=== PATIENT | female | born 1975 | race Caucasian/White ===

== ENCOUNTER 2017-08-04 09:12 | Inpatient (IN) | payer BC, MEDICAID ==
[2017-08-04 09:58] LABS: ADD MAN DIFF? NO
[2017-08-04 09:59] LABS: BASOPHIL # 0.1 10^3/ul (0.0-0.1); BASOPHILS % 0.5 % (0.0-2.0); EOSINOPHILS # 0.1 10^3/ul (0.0-0.5); EOSINOPHILS % 1.5 % (0.0-7.0); HEMATOCRIT 41.3 % (37.0-47.0); HEMOGLOBIN 13.2 g/dl (12.0-16.0); LYMPHOCYTES # 1.8 10^3/ul (0.8-2.9); LYMPHOCYTES % 18.7 % (15.0-51.0); MEAN CORPUSCULAR HEMOGLOBIN 30.2 pg (29.0-33.0); MEAN CORPUSCULAR VOLUME 94.5 fl (82.0-101.0); MONOCYTE # 0.8 10^3/ul (0.3-0.9); MONOCYTES % 8.6 % (0.0-11.0); NEUTROPHIL # 6.8 10^3/ul (1.6-7.5); NEUTROPHILS % 70.3 % (39.0-77.0); PLATELET COUNT 235 10^3/UL (140-415); RED BLOOD COUNT 4.37 10^6/ul (4.20-5.40); RED CELL DISTRIBUTION WIDTH 14.2 % (11.5-14.5)
[2017-08-04 09:59] LABS: WHITE BLOOD COUNT 9.6 10^3/ul (4.8-10.8)
[2017-08-04 10:16] LABS: ANION GAP 17 (8-16); BLOOD UREA NITROGEN 14 mg/dl (7-20); CALCIUM 9.2 mg/dl (8.4-10.2); CARBON DIOXIDE 27 mmol/L (21-31); CHLORIDE 103 mmol/L (97-110); CREATININE 0.89 mg/dl (0.44-1.00); GLUCOSE 125 mg/dl (70-220); POTASSIUM 4.2 mmol/L (3.5-5.1); SODIUM 143 mmol/L (135-144)
[2017-08-04 10:28] LABS: B-TYPE NATRIURETIC PEPTIDE 8470 PG/ML (0-125); TROPONIN-I 0.015 ng/ml (0.00-0.12)
[2017-08-04] MEDS ORDERED: HYDROCODONE/APAP (5/325) TAB PO (14:30)
[2017-08-04] MEDS ORDERED: ZOLPIDEM 5 MG TAB PO (14:30)
[2017-08-04] MEDS ORDERED: LORAZEPAM 0.5 MG TAB PO (14:30)
[2017-08-04] MEDS ORDERED: morphine 2 MG INJ IV (14:30)
[2017-08-04] MEDS ORDERED: ACETAMINOPHEN 325 MG TAB PO ×2 (14:30→15:00)
[2017-08-04] MEDS ORDERED: NACL 0.9% 3 ML SYG IV (14:30)
[2017-08-04] MEDS ORDERED: BISACODYL (EC) 5 MG TAB PO (14:30)
[2017-08-04] MEDS ORDERED: ONDANSETRON 4 MG INJ IV (15:00)
[2017-08-04] MEDS: FAMOTIDINE 20 MG TAB PO (15:31)
[2017-08-04] MEDS: PANTOPRAZOLE (EC) 40 MG TAB PO (15:31)
[2017-08-04] MEDS: LIDOCAINE/MYLANTA 40 ML BTL PO (15:32)
[2017-08-04 17:25] LABS: CREATINE KINASE 43 IU/L (23-200)
[2017-08-04 17:37] LABS: CK INDEX 1.2; CK-MB 0.51 ng/ml (0.0-2.4); TROPONIN-I 0.016 ng/ml (0.00-0.12)
[2017-08-04 17:37] LABS: DIGOXIN 0.9 ng/ml (1.0-2.0)
[2017-08-04] MEDS ORDERED: FUROSEMIDE 40 MG INJ IV (18:00)
[2017-08-04] MEDS: FUROSEMIDE 40 MG INJ IV (18:02)
[2017-08-04] MEDS: MAGNESIUM SULFATE 2 GM/50 ML 50 ML IVPB (18:03)
[2017-08-04] MEDS: IVABRADINE HCL 5 MG TABLET PO (18:17)
[2017-08-04] MEDS: GUAIFENESIN/DM 5ML CUP PO (23:32)
[2017-08-05 05:08] LABS: ADD MAN DIFF? NO
[2017-08-05 05:12] LABS: WHITE BLOOD COUNT 7.2 10^3/ul (4.8-10.8)
[2017-08-05 05:12] LABS: BASOPHILS % 0.4 % (0.0-2.0); EOSINOPHILS # 0.1 10^3/ul (0.0-0.5); EOSINOPHILS % 1.4 % (0.0-7.0); HEMATOCRIT 36.4 % (37.0-47.0); HEMOGLOBIN 11.7 g/dl (12.0-16.0); LYMPHOCYTES # 1.6 10^3/ul (0.8-2.9); LYMPHOCYTES % 21.7 % (15.0-51.0); MEAN CORPUSCULAR HGB CONC 32.1 g/dl (32.0-37.0); MEAN CORPUSCULAR VOLUME 93.3 fl (82.0-101.0); MEAN PLATELET VOLUME 11.7 fl (7.4-10.4); MONOCYTE # 0.8 10^3/ul (0.3-0.9); MONOCYTES % 10.4 % (0.0-11.0); NEUTROPHIL # 4.8 10^3/ul (1.6-7.5); NEUTROPHILS % 65.8 % (39.0-77.0); PLATELET COUNT 192 10^3/UL (140-415); RED CELL DISTRIBUTION WIDTH 14.3 % (11.5-14.5)
[2017-08-05 05:52] LABS: ALANINE AMINOTRANSFERASE 43 IU/L (13-69); ALBUMIN 3.5 g/dl (3.3-4.9); ALBUMIN/GLOBULIN RATIO 1.29; ALKALINE PHOSPHATASE 65 IU/L (42-121); ANION GAP 15 (8-16); ASPARTATE AMINO TRANSFERASE 24 IU/L (15-46); BILIRUBIN,INDIRECT 1.1 mg/dl (0-1.1); BILIRUBIN,TOTAL 1.1 mg/dl (0.2-1.3); BLOOD UREA NITROGEN 14 mg/dl (7-20); CALCIUM 8.9 mg/dl (8.4-10.2); CARBON DIOXIDE 25 mmol/L (21-31); CHLORIDE 106 mmol/L (97-110); CHOL/HDL RATIO 3.7 RATIO; CHOLESTEROL 101 mg/dl (100-200); CREATININE 0.83 mg/dl (0.44-1.00); GLUCOSE 107 mg/dl (70-220); HDL CHOLESTEROL 27 mg/dl (34-88); LDL CHOLESTEROL,CALCULATED 59 mg/dl; MAGNESIUM 2.2 mg/dl (1.7-2.5); POTASSIUM 4.2 mmol/L (3.5-5.1); SODIUM 142 mmol/L (135-144); TOTAL PROTEIN 6.2 g/dl (6.1-8.1); TRIGLYCERIDES 73 mg/dl (0-149)
[2017-08-05] MEDS: PANTOPRAZOLE (EC) 40 MG TAB PO (05:52)
[2017-08-05] MEDS: FUROSEMIDE 40 MG INJ IV ×2 (05:59→17:36)
[2017-08-05] MEDS: IVABRADINE HCL 5 MG TABLET PO ×2 (07:47→17:36)
[2017-08-05] MEDS: ENOXAPARIN 40 MG/0.4 ML SYG SC (08:36)
[2017-08-05] MEDS: LOSARTAN 25 MG TAB PO (08:59)
[2017-08-05] MEDS: SPIRONOLACTONE 25 MG TAB PO (08:59)
[2017-08-05] MEDS: GUAIFENESIN/DM 5ML CUP PO ×2 (09:14→23:46)
[2017-08-05] MEDS: ALBUTEROL/IPRATROPIUM (NEB) 3 ML AMP HHN ×4 (10:08→19:54)
[2017-08-05] MEDS: DIGOXIN 0.125 MG TAB PO (14:08)
[2017-08-06] MEDS: PANTOPRAZOLE (EC) 40 MG TAB PO (05:25)
[2017-08-06] MEDS: FUROSEMIDE 40 MG INJ IV ×2 (05:26→18:12)
[2017-08-06 07:28] LABS: ADD MAN DIFF? NO
[2017-08-06 07:31] LABS: WHITE BLOOD COUNT 8.1 10^3/ul (4.8-10.8)
[2017-08-06 07:31] LABS: BASOPHIL # 0.1 10^3/ul (0.0-0.1); BASOPHILS % 0.6 % (0.0-2.0); EOSINOPHILS # 0.1 10^3/ul (0.0-0.5); EOSINOPHILS % 1.7 % (0.0-7.0); HEMATOCRIT 35.3 % (37.0-47.0); HEMOGLOBIN 11.4 g/dl (12.0-16.0); LYMPHOCYTES # 1.5 10^3/ul (0.8-2.9); LYMPHOCYTES % 18.3 % (15.0-51.0); MEAN CORPUSCULAR HEMOGLOBIN 30.5 pg (29.0-33.0); MEAN CORPUSCULAR HGB CONC 32.3 g/dl (32.0-37.0); MEAN CORPUSCULAR VOLUME 94.4 fl (82.0-101.0); MEAN PLATELET VOLUME 11.3 fl (7.4-10.4); MONOCYTE # 0.7 10^3/ul (0.3-0.9); MONOCYTES % 8.2 % (0.0-11.0); NEUTROPHIL # 5.7 10^3/ul (1.6-7.5); NEUTROPHILS % 70.7 % (39.0-77.0); PLATELET COUNT 176 10^3/UL (140-415); RED BLOOD COUNT 3.74 10^6/ul (4.20-5.40); RED CELL DISTRIBUTION WIDTH 14.6 % (11.5-14.5)
[2017-08-06 07:53] LABS: ANION GAP 17 (8-16); BLOOD UREA NITROGEN 14 mg/dl (7-20); CALCIUM 9.1 mg/dl (8.4-10.2); CARBON DIOXIDE 26 mmol/L (21-31); CHLORIDE 103 mmol/L (97-110); CREATININE 0.92 mg/dl (0.44-1.00); GLUCOSE 100 mg/dl (70-220); MAGNESIUM 1.9 mg/dl (1.7-2.5); PHOSPHORUS 4.7 mg/dl (2.5-4.9); POTASSIUM 3.7 mmol/L (3.5-5.1); SODIUM 142 mmol/L (135-144)
[2017-08-06] MEDS: IVABRADINE HCL 5 MG TABLET PO ×2 (08:00→18:13)
[2017-08-06] MEDS: GUAIFENESIN/DM 5ML CUP PO (08:49)
[2017-08-06] MEDS: SPIRONOLACTONE 25 MG TAB PO (08:49)
[2017-08-06] MEDS: LOSARTAN 25 MG TAB PO (08:49)
[2017-08-06] MEDS: ENOXAPARIN 40 MG/0.4 ML SYG SC (08:51)
[2017-08-06] MEDS ORDERED: CYCLOBENZAPRINE 10 MG TAB PO (10:30)
[2017-08-06] MEDS: ALBUTEROL/IPRATROPIUM (NEB) 3 ML AMP HHN ×3 (12:56→20:10)
[2017-08-06] MEDS: DIGOXIN 0.125 MG TAB PO (13:00)
[2017-08-06] MEDS: POTASSIUM CHLORIDE (SR) 20 MEQ TAB PO (14:27)
[2017-08-06] MEDS: MAGNESIUM SULFATE 2 GM/50 ML 50 ML IVPB (14:27)
[2017-08-06] MEDS: BARIUM SULF 2% 450 ML BTL (BERRY SMOOTHIE) PO (16:00)
[2017-08-07] MEDS: PANTOPRAZOLE (EC) 40 MG TAB PO (05:15)
[2017-08-07] MEDS: FUROSEMIDE 20 MG TAB PO ×2 (05:16→18:31)
[2017-08-07 08:17] LABS: ADD MAN DIFF? NO
[2017-08-07 08:25] LABS: WHITE BLOOD COUNT 9.9 10^3/ul (4.8-10.8)
[2017-08-07 08:25] LABS: BASOPHILS % 0.4 % (0.0-2.0); EOSINOPHILS # 0.2 10^3/ul (0.0-0.5); HEMATOCRIT 38.3 % (37.0-47.0); HEMOGLOBIN 12.1 g/dl (12.0-16.0); LYMPHOCYTES # 1.8 10^3/ul (0.8-2.9); LYMPHOCYTES % 17.7 % (15.0-51.0); MEAN CORPUSCULAR HEMOGLOBIN 30.3 pg (29.0-33.0); MEAN CORPUSCULAR HGB CONC 31.6 g/dl (32.0-37.0); MEAN CORPUSCULAR VOLUME 95.8 fl (82.0-101.0); MEAN PLATELET VOLUME 11.8 fl (7.4-10.4); MONOCYTE # 0.9 10^3/ul (0.3-0.9); NEUTROPHILS % 70.5 % (39.0-77.0); PLATELET COUNT 197 10^3/UL (140-415); RED CELL DISTRIBUTION WIDTH 14.6 % (11.5-14.5)
[2017-08-07 08:42] LABS: ANION GAP 16 (8-16); BLOOD UREA NITROGEN 15 mg/dl (7-20); CALCIUM 9.3 mg/dl (8.4-10.2); CARBON DIOXIDE 29 mmol/L (21-31); CHLORIDE 102 mmol/L (97-110); CREATININE 0.93 mg/dl (0.44-1.00); GLUCOSE 103 mg/dl (70-220); PHOSPHORUS 4.1 mg/dl (2.5-4.9); SODIUM 142 mmol/L (135-144)
[2017-08-07] MEDS: LOSARTAN 25 MG TAB PO (09:00)
[2017-08-07] MEDS: IVABRADINE HCL 5 MG TABLET PO ×2 (09:03→18:30)
[2017-08-07] MEDS: SPIRONOLACTONE 25 MG TAB PO (09:04)
[2017-08-07] MEDS: ALBUTEROL/IPRATROPIUM (NEB) 3 ML AMP HHN (10:50)
[2017-08-07] MEDS: DIGOXIN 0.125 MG TAB PO (14:17)
[2017-08-07] MEDS: ENOXAPARIN 40 MG/0.4 ML SYG SC (14:20)
[2017-08-07 16:33] LABS: ALANINE AMINOTRANSFERASE 37 IU/L (13-69); ALBUMIN 3.7 g/dl (3.3-4.9); ALKALINE PHOSPHATASE 66 IU/L (42-121); ASPARTATE AMINO TRANSFERASE 26 IU/L (15-46); BILIRUBIN,INDIRECT 0.7 mg/dl (0-1.1); BILIRUBIN,TOTAL 0.7 mg/dl (0.2-1.3); TOTAL PROTEIN 6.7 g/dl (6.1-8.1)
[2017-08-07] MEDS: IOHEXOL 300MG/ML 150 ML BTL (17:37)
[2017-08-07] MEDS: SOD CHLORIDE 0.9% 100 ML (17:37)
[2017-08-07 17:45] LABS: ALANINE AMINOTRANSFERASE 39 IU/L (13-69); ALBUMIN 3.7 g/dl (3.3-4.9); ALKALINE PHOSPHATASE 69 IU/L (42-121); ASPARTATE AMINO TRANSFERASE 30 IU/L (15-46); BILIRUBIN,INDIRECT 0.9 mg/dl (0-1.1); BILIRUBIN,TOTAL 0.9 mg/dl (0.2-1.3); TOTAL PROTEIN 6.9 g/dl (6.1-8.1)
[2017-08-07] MEDS: ONDANSETRON 4 MG INJ IV (20:54)
[2017-08-08] MEDS: FUROSEMIDE 20 MG TAB PO ×2 (05:58→17:39)
[2017-08-08] MEDS: PANTOPRAZOLE (EC) 40 MG TAB PO (06:01)
[2017-08-08] MEDS: GUAIFENESIN/DM 5ML CUP PO (06:03)
[2017-08-08] MEDS: IVABRADINE HCL 5 MG TABLET PO ×2 (08:00→17:40)
[2017-08-08] MEDS: ENOXAPARIN 40 MG/0.4 ML SYG SC (09:00)
[2017-08-08] MEDS: LOSARTAN 25 MG TAB PO (09:00)
[2017-08-08] MEDS: SPIRONOLACTONE 25 MG TAB PO (09:00)
[2017-08-08] MEDS: DIGOXIN 0.125 MG TAB PO (13:00)
[2017-08-08] MEDS ORDERED: METOPROLOL 5 MG INJ (20:08)
[2017-08-08] MEDS ORDERED: MIDAZOLAM 1 MG/ML 2 ML INJ ×2 (20:08)
[2017-08-08] MEDS ORDERED: PROPOFOL 20 ML (20:08)
[2017-08-09 06:45] LABS: ADD MAN DIFF? NO
[2017-08-09] MEDS: FUROSEMIDE 20 MG TAB PO (06:50)
[2017-08-09] MEDS: PANTOPRAZOLE (EC) 40 MG TAB PO (06:50)
[2017-08-09 06:52] LABS: BASOPHIL # 0.1 10^3/ul (0.0-0.1); BASOPHILS % 0.7 % (0.0-2.0); EOSINOPHILS # 0.2 10^3/ul (0.0-0.5); EOSINOPHILS % 2.8 % (0.0-7.0); HEMATOCRIT 35.3 % (37.0-47.0); HEMOGLOBIN 11.4 g/dl (12.0-16.0); LYMPHOCYTES # 1.4 10^3/ul (0.8-2.9); LYMPHOCYTES % 19.2 % (15.0-51.0); MEAN CORPUSCULAR HEMOGLOBIN 30.2 pg (29.0-33.0); MEAN CORPUSCULAR HGB CONC 32.3 g/dl (32.0-37.0); MEAN CORPUSCULAR VOLUME 93.6 fl (82.0-101.0); MEAN PLATELET VOLUME 11.3 fl (7.4-10.4); MONOCYTE # 0.7 10^3/ul (0.3-0.9); MONOCYTES % 9.4 % (0.0-11.0); NEUTROPHIL # 4.8 10^3/ul (1.6-7.5); NEUTROPHILS % 67.6 % (39.0-77.0); PLATELET COUNT 176 10^3/UL (140-415); RED BLOOD COUNT 3.77 10^6/ul (4.20-5.40); RED CELL DISTRIBUTION WIDTH 14.3 % (11.5-14.5)
[2017-08-09 07:21] LABS: ANION GAP 14 (8-16); BLOOD UREA NITROGEN 15 mg/dl (7-20); CALCIUM 8.9 mg/dl (8.4-10.2); CARBON DIOXIDE 26 mmol/L (21-31); CHLORIDE 103 mmol/L (97-110); CREATININE 0.83 mg/dl (0.44-1.00); GLUCOSE 99 mg/dl (70-220); PHOSPHORUS 4.6 mg/dl (2.5-4.9); POTASSIUM 4.2 mmol/L (3.5-5.1); SODIUM 139 mmol/L (135-144)
[2017-08-09] MEDS: ENOXAPARIN 40 MG/0.4 ML SYG SC (08:21)
[2017-08-09] MEDS: LOSARTAN 25 MG TAB PO (08:24)
[2017-08-09] MEDS: IVABRADINE HCL 5 MG TABLET PO (08:25)
[2017-08-09] MEDS: SPIRONOLACTONE 25 MG TAB PO (08:25)
[2017-08-09] MEDS: DIGOXIN 0.125 MG TAB PO (12:15)
[2017-08-09] MEDS ORDERED: PANTOPRAZOLE (EC) 40 MG TAB PO (18:00)
== END 2017-08-09 14:57 | disposition home or self-care (01) | DRG 391 ==
LOC: MS4 08-05 23:59 → E/R 09:12 → MS3 14:33
PROC: 0DB68ZX Excision of Stomach, Via Natural or Artificial Opening Endoscopic, Diagnostic (ICD-10-PCS; principal; 2017-08-08 20:00)
PROC: 0DB98ZX Excision of Duodenum, Via Natural or Artificial Opening Endoscopic, Diagnostic (ICD-10-PCS; 2017-08-08 20:00)
DX: K29.70 Gastritis, unspecified, without bleeding (principal); I50.23 Acute on chronic systolic (congestive) heart failure; I42.9 Cardiomyopathy, unspecified; K80.20 Calculus of gallbladder without cholecystitis without obstruction; Z95.810 Presence of automatic (implantable) cardiac defibrillator
CPT/HCPCS: 36415; 71045; 74177; 76705; 78226; 80048; 80053; 80061; 80076; 80162; 82550; 82553; 83735; 83880; 84100; 84443; 84484; 84703; 85025; 88305; 88312; 93005; 94640; 94664; 99285-25

== ENCOUNTER 2018-01-26 10:02 | Observation (INO) | payer BC ==
[2018-01-26 11:55] LABS: ADD MAN DIFF? NO
[2018-01-26 12:16] LABS: BASOPHIL # 0.1 10^3/ul (0.0-0.1); BASOPHILS % 0.7 % (0.0-2.0); EOSINOPHILS # 0.1 10^3/ul (0.0-0.5); EOSINOPHILS % 1.2 % (0.0-7.0); HEMATOCRIT 36.1 % (37.0-47.0); HEMOGLOBIN 11.6 g/dl (12.0-16.0); LYMPHOCYTES # 1.6 10^3/ul (0.8-2.9); LYMPHOCYTES % 18.6 % (15.0-51.0); MEAN CORPUSCULAR HEMOGLOBIN 30.9 pg (29.0-33.0); MEAN CORPUSCULAR HGB CONC 32.1 g/dl (32.0-37.0); MEAN CORPUSCULAR VOLUME 96.3 fl (82.0-101.0); MEAN PLATELET VOLUME 11.2 fl (7.4-10.4); MONOCYTE # 0.7 10^3/ul (0.3-0.9); MONOCYTES % 8.7 % (0.0-11.0); NEUTROPHIL # 5.9 10^3/ul (1.6-7.5); NEUTROPHILS % 70.4 % (39.0-77.0); PLATELET COUNT 192 10^3/UL (140-415); RED BLOOD COUNT 3.75 10^6/ul (4.20-5.40); RED CELL DISTRIBUTION WIDTH 14.5 % (11.5-14.5)
[2018-01-26 12:16] LABS: WHITE BLOOD COUNT 8.3 10^3/ul (4.8-10.8)
[2018-01-26 12:18] LABS: INR 1.29; PROTIME 16.3 Sec (11.9-14.9); PT RATIO 1.3
[2018-01-26 12:19] LABS: PARTIAL THROMBOPLASTIN TIME 30.3 Sec (25.0-35.0)
[2018-01-26 12:22] LABS: ANION GAP 17 (8-16); BLOOD UREA NITROGEN 21 mg/dl (7-20); CALCIUM 9.5 mg/dl (8.4-10.2); CARBON DIOXIDE 25 mmol/L (21-31); CHLORIDE 104 mmol/L (97-110); CREATININE 1.02 mg/dl (0.44-1.00); GLUCOSE 107 mg/dl (70-220); POTASSIUM 4.5 mmol/L (3.5-5.1); SODIUM 141 mmol/L (135-144)
[2018-01-26 12:34] LABS: TROPONIN-I 0.019 ng/ml (0.000-0.120)
[2018-01-26 12:54] LABS: DIGOXIN 0.9 ng/ml (1.0-2.0)
[2018-01-26 13:00] LABS: B-TYPE NATRIURETIC PEPTIDE 15000 PG/ML (0-125)
[2018-01-26 13:19] LABS: ALANINE AMINOTRANSFERASE 25 IU/L (13-69); ALBUMIN 4.1 g/dl (3.3-4.9); ALKALINE PHOSPHATASE 86 IU/L (42-121); ASPARTATE AMINO TRANSFERASE 27 IU/L (15-46); BILIRUBIN,INDIRECT 1.4 mg/dl (0-1.1); BILIRUBIN,TOTAL 1.4 mg/dl (0.2-1.3); TOTAL PROTEIN 7.1 g/dl (6.1-8.1)
[2018-01-26 13:50] LABS: MAGNESIUM 1.9 mg/dl (1.7-2.5)
[2018-01-26 14:19] LABS: ADD UMIC YES; UR ASCORBIC ACID NEGATIVE (NEGATIVE); UR BACTERIA FEW /HPF (NONE SEEN); UR BILIRUBIN (Dip) NEGATIVE (NEGATIVE); UR BLOOD (Dip) 1+ mg/dL (NEGATIVE); UR CLARITY CLEAR (CLEAR); UR COLOR YELLOW (YELLOW); UR GLUCOSE (Dip) NEGATIVE (NEGATIVE); UR KETONES (Dip) NEGATIVE (NEGATIVE); UR LEUKOCYTE ESTERASE (Dip) TRACE Leu/ul (NEGATIVE); UR NITRITE (Dip) NEGATIVE (NEGATIVE); UR RBC 1 /HPF (0-5); UR SPECIFIC GRAVITY (Dip) 1.009 (1.003-1.030); UR SQUAMOUS EPITHELIAL CELL FEW /HPF (FEW); UR TOTAL PROTEIN (Dip) NEGATIVE (NEGATIVE); UR UROBILINOGEN (Dip) NEGATIVE (NEGATIVE); UR WBC 6 /HPF (0-5)
[2018-01-26] MEDS ORDERED: HYDROCODONE/APAP (5/325) TAB PO (17:00)
[2018-01-26] MEDS ORDERED: NACL 0.9% 3 ML SYG IV (17:00)
[2018-01-26] MEDS ORDERED: ONDANSETRON 4 MG INJ IV (17:00)
[2018-01-26] MEDS: FUROSEMIDE 40 MG INJ IV (18:05)
[2018-01-26] MEDS: IVABRADINE HCL 5 MG TABLET PO (18:05)
[2018-01-26] MEDS: ONDANSETRON 4 MG TAB PO (18:47)
[2018-01-26] MEDS ORDERED: SACUBITRIL/VALSARTAN (49mg-51mg) TABLET PO (21:00)
[2018-01-27 06:17] LABS: HEMOGLOBIN A1C 5.5 % (0-5.9)
[2018-01-27] MEDS: PANTOPRAZOLE SODIUM 20 MG TABEC PO (06:40)
[2018-01-27] MEDS: ONDANSETRON 4 MG TAB PO ×4 (06:40→22:25)
[2018-01-27 06:47] LABS: ALANINE AMINOTRANSFERASE 32 IU/L (13-69); ALBUMIN/GLOBULIN RATIO 1.16; ANION GAP 14 (8-16); ASPARTATE AMINO TRANSFERASE 27 IU/L (15-46); BILIRUBIN,TOTAL 1.3 mg/dl (0.2-1.3); BLOOD UREA NITROGEN 24 mg/dl (7-20); CALCIUM 9.2 mg/dl (8.4-10.2); CARBON DIOXIDE 27 mmol/L (21-31); CHLORIDE 102 mmol/L (97-110); CREATININE 1.15 mg/dl (0.44-1.00); GLUCOSE 97 mg/dl (70-220); MAGNESIUM 2.1 mg/dl (1.7-2.5); POTASSIUM 4.3 mmol/L (3.5-5.1); SODIUM 139 mmol/L (135-144)
[2018-01-27 06:48] LABS: ALBUMIN 3.5 g/dl (3.3-4.9); ALKALINE PHOSPHATASE 71 IU/L (42-121); BILIRUBIN,INDIRECT 1.3 mg/dl (0-1.1); TOTAL PROTEIN 6.5 g/dl (6.1-8.1)
[2018-01-27] MEDS: FUROSEMIDE 40 MG INJ IV (06:53)
[2018-01-27] MEDS: SPIRONOLACTONE 25 MG TAB PO (08:08)
[2018-01-27] MEDS: IVABRADINE HCL 5 MG TABLET PO ×2 (08:08→17:04)
[2018-01-27] MEDS: ENOXAPARIN 40 MG/0.4 ML SYG SC (08:13)
[2018-01-27] MEDS: DIGOXIN 0.125 MG TAB PO (12:15)
[2018-01-27] MEDS: BISACODYL (EC) 5 MG TAB PO (12:55)
[2018-01-27] MEDS: FUROSEMIDE 20 MG INJ IV (17:05)
[2018-01-27] MEDS: ACETAMINOPHEN 325 MG TAB PO (22:28)
[2018-01-28] MEDS: FUROSEMIDE 20 MG INJ IV (05:23)
[2018-01-28] MEDS: PANTOPRAZOLE SODIUM 20 MG TABEC PO (05:23)
[2018-01-28 06:49] LABS: ANION GAP 12 (8-16); BLOOD UREA NITROGEN 23 mg/dl (7-20); CARBON DIOXIDE 29 mmol/L (21-31); CHLORIDE 100 mmol/L (97-110); CREATININE 1.21 mg/dl (0.44-1.00); GLUCOSE 95 mg/dl (70-220); POTASSIUM 4.3 mmol/L (3.5-5.1); SODIUM 137 mmol/L (135-144)
[2018-01-28] MEDS: SPIRONOLACTONE 25 MG TAB PO (08:05)
[2018-01-28] MEDS: IVABRADINE HCL 5 MG TABLET PO (08:05)
[2018-01-28] MEDS: ENOXAPARIN 40 MG/0.4 ML SYG SC (08:07)
[2018-01-28] MEDS: DIGOXIN 0.125 MG TAB PO (12:11)
== END 2018-01-28 17:00 | disposition home or self-care (01) ==
LOC: E/R 10:02 → 6WM 13:58
DX: I50.23 Acute on chronic systolic (congestive) heart failure (principal); I42.9 Cardiomyopathy, unspecified; Z95.810 Presence of automatic (implantable) cardiac defibrillator
CPT/HCPCS: 36415; 71045; 80048; 80053; 80076; 80162; 81001; 81025; 83036; 83735; 83880; 84100; 84484; 85025; 85610; 85730; 93005; 93306; 99217; 99285-25; G0378

== ENCOUNTER 2018-02-04 05:13 | Inpatient (IN) | payer BC ==
[2018-02-04 06:18] LABS: ADD MAN DIFF? NO
[2018-02-04 06:22] LABS: WHITE BLOOD COUNT 8.2 10^3/ul (4.8-10.8)
[2018-02-04 06:22] LABS: BASOPHIL # 0.1 10^3/ul (0.0-0.1); BASOPHILS % 0.6 % (0.0-2.0); EOSINOPHILS # 0.1 10^3/ul (0.0-0.5); EOSINOPHILS % 1.1 % (0.0-7.0); HEMATOCRIT 35.1 % (37.0-47.0); HEMOGLOBIN 11.5 g/dl (12.0-16.0); LYMPHOCYTES # 1.8 10^3/ul (0.8-2.9); LYMPHOCYTES % 22.5 % (15.0-51.0); MEAN CORPUSCULAR HGB CONC 32.8 g/dl (32.0-37.0); MEAN CORPUSCULAR VOLUME 94.6 fl (82.0-101.0); MEAN PLATELET VOLUME 11.4 fl (7.4-10.4); MONOCYTE # 0.6 10^3/ul (0.3-0.9); MONOCYTES % 7.8 % (0.0-11.0); NEUTROPHIL # 5.5 10^3/ul (1.6-7.5); NEUTROPHILS % 67.5 % (39.0-77.0); PLATELET COUNT 204 10^3/UL (140-415); RED BLOOD COUNT 3.71 10^6/ul (4.20-5.40); RED CELL DISTRIBUTION WIDTH 14.6 % (11.5-14.5)
[2018-02-04] MEDS: ASPIRIN 81 MG TAB PO (06:39)
[2018-02-04] MEDS: FUROSEMIDE 40 MG INJ IV (06:39)
[2018-02-04 07:06] LABS: ALANINE AMINOTRANSFERASE 61 IU/L (13-69); ALBUMIN/GLOBULIN RATIO 1.21; ALKALINE PHOSPHATASE 92 IU/L (42-121); ANION GAP 19 (8-16); ASPARTATE AMINO TRANSFERASE 53 IU/L (15-46); BILIRUBIN,INDIRECT 1.8 mg/dl (0-1.1); BILIRUBIN,TOTAL 1.8 mg/dl (0.2-1.3); BLOOD UREA NITROGEN 24 mg/dl (7-20); CALCIUM 9.4 mg/dl (8.4-10.2); CARBON DIOXIDE 23 mmol/L (21-31); CHLORIDE 101 mmol/L (97-110); GLUCOSE 116 mg/dl (70-220); POTASSIUM 4.1 mmol/L (3.5-5.1); SODIUM 139 mmol/L (135-144); TOTAL PROTEIN 7.3 g/dl (6.1-8.1)
[2018-02-04 07:16] LABS: B-TYPE NATRIURETIC PEPTIDE 20600 PG/ML (0-125); TROPONIN-I 0.034 ng/ml (0.000-0.120)
[2018-02-04] MEDS: ALBUTEROL 0.083% (NEB) 2.5 MG/3 ML AMP HHN (07:23)
[2018-02-04] MEDS ORDERED: ONDANSETRON 4 MG INJ IV (09:00)
[2018-02-04] MEDS ORDERED: NACL 0.9% 3 ML SYG IV (09:00)
[2018-02-04] MEDS ORDERED: DOCUSATE SODIUM 100 MG CAP PO (09:00)
[2018-02-04] MEDS ORDERED: ACETAMINOPHEN 325 MG TAB PO (09:00)
[2018-02-04] MEDS ORDERED: morphine 2 MG INJ IV (09:00)
[2018-02-04] MEDS ORDERED: BISACODYL 10 MG SUPP PR (09:00)
[2018-02-04] MEDS ORDERED: HYDROCODONE/APAP (5/325) TAB PO ×2 (09:00)
[2018-02-04] MEDS ORDERED: ACETAMINOPHEN 650 MG SUPP PR (09:00)
[2018-02-04] MEDS ORDERED: MAGNESIUM HYDROXIDE 30ML CUP PO (09:00)
[2018-02-04] MEDS: FERROUS SULFATE (EC) 325 MG TAB PO ×2 (10:50→22:10)
[2018-02-04] MEDS: SPIRONOLACTONE 25 MG TAB PO (10:50)
[2018-02-04 11:21] LABS: CREATINE KINASE 81 IU/L (23-200)
[2018-02-04 11:33] LABS: CK INDEX 0.5; CK-MB 0.41 ng/ml (0.0-2.4); TROPONIN-I 0.017 ng/ml (0.000-0.120)
[2018-02-04] MEDS: DIGOXIN 0.125 MG TAB PO (13:18)
[2018-02-04 15:48] LABS: CREATINE KINASE 72 IU/L (23-200)
[2018-02-04 15:50] LABS: CK INDEX 0.5; CK-MB 0.38 ng/ml (0.0-2.4); TROPONIN-I 0.018 ng/ml (0.000-0.120)
[2018-02-04] MEDS: ALBUTEROL/IPRATROPIUM (NEB) 3 ML AMP HHN ×2 (16:10→19:57)
[2018-02-04] MEDS ORDERED: FUROSEMIDE 40 MG INJ IV (18:00)
[2018-02-04] MEDS: IVABRADINE HCL 5 MG TABLET PO (18:00)
[2018-02-04] MEDS: FUROSEMIDE 20 MG INJ IV (18:22)
[2018-02-04] MEDS: SACUBITRIL/VALSARTAN (24mg-26mg) TABLET PO (22:10)
[2018-02-05] MEDS: PANTOPRAZOLE SODIUM 20 MG TABEC PO (06:01)
[2018-02-05] MEDS: FUROSEMIDE 20 MG INJ IV ×3 (06:06→17:41)
[2018-02-05] MEDS: ALBUTEROL/IPRATROPIUM (NEB) 3 ML AMP HHN ×2 (06:11→21:48)
[2018-02-05 06:20] LABS: ADD MAN DIFF? NO
[2018-02-05 06:27] LABS: WHITE BLOOD COUNT 7.9 10^3/ul (4.8-10.8)
[2018-02-05 06:27] LABS: BASOPHIL # 0.1 10^3/ul (0.0-0.1); BASOPHILS % 0.8 % (0.0-2.0); EOSINOPHILS # 0.2 10^3/ul (0.0-0.5); EOSINOPHILS % 2.7 % (0.0-7.0); HEMOGLOBIN 11.4 g/dl (12.0-16.0); LYMPHOCYTES # 1.6 10^3/ul (0.8-2.9); LYMPHOCYTES % 20.4 % (15.0-51.0); MEAN CORPUSCULAR HEMOGLOBIN 31.1 pg (29.0-33.0); MEAN CORPUSCULAR HGB CONC 31.7 g/dl (32.0-37.0); MEAN CORPUSCULAR VOLUME 98.4 fl (82.0-101.0); MEAN PLATELET VOLUME 11.3 fl (7.4-10.4); MONOCYTE # 0.6 10^3/ul (0.3-0.9); NEUTROPHIL # 5.4 10^3/ul (1.6-7.5); NEUTROPHILS % 68.5 % (39.0-77.0); PLATELET COUNT 193 10^3/UL (140-415); RED BLOOD COUNT 3.66 10^6/ul (4.20-5.40); RED CELL DISTRIBUTION WIDTH 14.7 % (11.5-14.5)
[2018-02-05 06:35] LABS: HEMOGLOBIN A1C 5.8 % (0-5.9)
[2018-02-05 06:46] LABS: ALANINE AMINOTRANSFERASE 59 IU/L (13-69); ALBUMIN 3.6 g/dl (3.3-4.9); ALKALINE PHOSPHATASE 84 IU/L (42-121); ANION GAP 16 (8-16); ASPARTATE AMINO TRANSFERASE 43 IU/L (15-46); BILIRUBIN,INDIRECT 1.2 mg/dl (0-1.1); BILIRUBIN,TOTAL 1.2 mg/dl (0.2-1.3); BLOOD UREA NITROGEN 25 mg/dl (7-20); CALCIUM 9.3 mg/dl (8.4-10.2); CARBON DIOXIDE 29 mmol/L (21-31); CHLORIDE 98 mmol/L (97-110); CHOL/HDL RATIO 3.6 RATIO; CHOLESTEROL 65 mg/dl (100-200); CREATININE 1.02 mg/dl (0.44-1.00); GLUCOSE 106 mg/dl (70-220); HDL CHOLESTEROL 18 mg/dl (34-88); LDL CHOLESTEROL,CALCULATED 35 mg/dl; MAGNESIUM 2.1 mg/dl (1.7-2.5); PHOSPHORUS 4.5 mg/dl (2.5-4.9); POTASSIUM 3.8 mmol/L (3.5-5.1); SODIUM 139 mmol/L (135-144); TOTAL PROTEIN 6.6 g/dl (6.1-8.1); TRIGLYCERIDES 61 mg/dl (0-149)
[2018-02-05 07:00] LABS: FREE THYROXINE INDEX (Calc) 3.69 ug/ml (0.65-3.89); T3 UPTAKE 46.1 % (23.5-40.5)
[2018-02-05] MEDS: IVABRADINE HCL 5 MG TABLET PO ×2 (08:54→17:41)
[2018-02-05] MEDS: SACUBITRIL/VALSARTAN (24mg-26mg) TABLET PO ×2 (08:55→21:07)
[2018-02-05] MEDS: SPIRONOLACTONE 25 MG TAB PO (08:55)
[2018-02-05] MEDS: FERROUS SULFATE (EC) 325 MG TAB PO ×2 (08:55→21:07)
[2018-02-05] MEDS: DIGOXIN 0.125 MG TAB PO (13:35)
[2018-02-05] MEDS: POTASSIUM CHLORIDE (SR) 20 MEQ TAB PO (15:21)
[2018-02-05] MEDS: HYDROCORTISONE 1% 28.35 GM OINT TOP (17:41)
[2018-02-05] MEDS: FISH OIL 1,000 MG CAP PO (21:07)
[2018-02-06] MEDS: FUROSEMIDE 20 MG INJ IV (05:20)
[2018-02-06 06:53] LABS: ADD MAN DIFF? NO
[2018-02-06 06:54] LABS: WHITE BLOOD COUNT 8.2 10^3/ul (4.8-10.8)
[2018-02-06 06:54] LABS: BASOPHIL # 0.1 10^3/ul (0.0-0.1); BASOPHILS % 0.7 % (0.0-2.0); EOSINOPHILS # 0.3 10^3/ul (0.0-0.5); EOSINOPHILS % 3.3 % (0.0-7.0); HEMATOCRIT 40.5 % (37.0-47.0); HEMOGLOBIN 12.6 g/dl (12.0-16.0); LYMPHOCYTES # 2.2 10^3/ul (0.8-2.9); LYMPHOCYTES % 26.2 % (15.0-51.0); MEAN CORPUSCULAR HEMOGLOBIN 31.2 pg (29.0-33.0); MEAN CORPUSCULAR HGB CONC 31.1 g/dl (32.0-37.0); MEAN CORPUSCULAR VOLUME 100.2 fl (82.0-101.0); MEAN PLATELET VOLUME 10.9 fl (7.4-10.4); MONOCYTE # 0.7 10^3/ul (0.3-0.9); MONOCYTES % 8.3 % (0.0-11.0); NEUTROPHILS % 61.1 % (39.0-77.0); PLATELET COUNT 214 10^3/UL (140-415); RED BLOOD COUNT 4.04 10^6/ul (4.20-5.40); RED CELL DISTRIBUTION WIDTH 14.8 % (11.5-14.5)
[2018-02-06] MEDS: PANTOPRAZOLE SODIUM 20 MG TABEC PO (07:14)
[2018-02-06 07:49] LABS: ANION GAP 23 (8-16); BLOOD UREA NITROGEN 20 mg/dl (7-20); CALCIUM 9.4 mg/dl (8.4-10.2); CARBON DIOXIDE 26 mmol/L (21-31); CHLORIDE 98 mmol/L (97-110); CREATININE 0.94 mg/dl (0.44-1.00); GLUCOSE 93 mg/dl (70-220); POTASSIUM 4.6 mmol/L (3.5-5.1); SODIUM 142 mmol/L (135-144)
[2018-02-06] MEDS: SACUBITRIL/VALSARTAN (24mg-26mg) TABLET PO ×2 (08:07→20:58)
[2018-02-06] MEDS: IVABRADINE HCL 5 MG TABLET PO ×2 (08:07→17:36)
[2018-02-06] MEDS: FISH OIL 1,000 MG CAP PO ×2 (08:08→20:58)
[2018-02-06] MEDS: FERROUS SULFATE (EC) 325 MG TAB PO ×2 (08:08→20:58)
[2018-02-06] MEDS: HYDROCORTISONE 1% 28.35 GM OINT TOP ×2 (08:09→20:59)
[2018-02-06] MEDS: SPIRONOLACTONE 25 MG TAB PO (08:17)
[2018-02-06] MEDS: DIGOXIN 0.125 MG TAB PO (12:31)
[2018-02-06] MEDS: BUMETANIDE 3 MG in DEXTROSE 5% 18 ML IV (15:31)
[2018-02-06] MEDS: ALBUTEROL/IPRATROPIUM (NEB) 3 ML AMP HHN (18:33)
[2018-02-07] MEDS: ALBUTEROL/IPRATROPIUM (NEB) 3 ML AMP HHN ×4 (00:11→19:54)
[2018-02-07] MEDS: PANTOPRAZOLE SODIUM 20 MG TABEC PO (05:40)
[2018-02-07] MEDS: FUROSEMIDE 40 MG INJ IV ×2 (05:41→18:07)
[2018-02-07 06:14] LABS: ADD MAN DIFF? NO
[2018-02-07 06:38] LABS: WHITE BLOOD COUNT 7.2 10^3/ul (4.8-10.8)
[2018-02-07 06:38] LABS: BASOPHILS % 0.6 % (0.0-2.0); EOSINOPHILS # 0.3 10^3/ul (0.0-0.5); EOSINOPHILS % 3.6 % (0.0-7.0); HEMATOCRIT 34.8 % (37.0-47.0); HEMOGLOBIN 11.1 g/dl (12.0-16.0); LYMPHOCYTES # 1.4 10^3/ul (0.8-2.9); LYMPHOCYTES % 19.1 % (15.0-51.0); MEAN CORPUSCULAR HEMOGLOBIN 31.1 pg (29.0-33.0); MEAN CORPUSCULAR HGB CONC 31.9 g/dl (32.0-37.0); MEAN CORPUSCULAR VOLUME 97.5 fl (82.0-101.0); MEAN PLATELET VOLUME 11.1 fl (7.4-10.4); MONOCYTE # 0.6 10^3/ul (0.3-0.9); MONOCYTES % 8.1 % (0.0-11.0); NEUTROPHIL # 4.9 10^3/ul (1.6-7.5); NEUTROPHILS % 68.2 % (39.0-77.0); PLATELET COUNT 175 10^3/UL (140-415); RED BLOOD COUNT 3.57 10^6/ul (4.20-5.40)
[2018-02-07 06:54] LABS: ANION GAP 17 (8-16); BLOOD UREA NITROGEN 20 mg/dl (7-20); CALCIUM 8.8 mg/dl (8.4-10.2); CARBON DIOXIDE 26 mmol/L (21-31); CHLORIDE 103 mmol/L (97-110); CREATININE 0.91 mg/dl (0.44-1.00); GLUCOSE 106 mg/dl (70-220); POTASSIUM 3.7 mmol/L (3.5-5.1); SODIUM 142 mmol/L (135-144)
[2018-02-07] MEDS: FISH OIL 1,000 MG CAP PO ×2 (09:06→20:22)
[2018-02-07] MEDS: SACUBITRIL/VALSARTAN (24mg-26mg) TABLET PO ×2 (09:06→20:22)
[2018-02-07] MEDS: FERROUS SULFATE (EC) 325 MG TAB PO ×2 (09:06→20:22)
[2018-02-07] MEDS: IVABRADINE HCL 5 MG TABLET PO ×2 (09:06→17:44)
[2018-02-07] MEDS: SPIRONOLACTONE 25 MG TAB PO (09:06)
[2018-02-07] MEDS: HYDROCORTISONE 1% 28.35 GM OINT TOP ×2 (09:07→20:23)
[2018-02-07] MEDS: DIGOXIN 0.125 MG TAB PO (13:59)
[2018-02-08] MEDS: FUROSEMIDE 40 MG INJ IV (06:00)
[2018-02-08 06:17] LABS: ADD MAN DIFF? NO
[2018-02-08] MEDS: PANTOPRAZOLE SODIUM 20 MG TABEC PO (06:22)
[2018-02-08 06:31] LABS: BASOPHIL # 0.1 10^3/ul (0.0-0.1); BASOPHILS % 0.8 % (0.0-2.0); EOSINOPHILS # 0.2 10^3/ul (0.0-0.5); EOSINOPHILS % 3.1 % (0.0-7.0); HEMOGLOBIN 11.1 g/dl (12.0-16.0); LYMPHOCYTES # 1.3 10^3/ul (0.8-2.9); LYMPHOCYTES % 18.2 % (15.0-51.0); MEAN CORPUSCULAR HEMOGLOBIN 30.4 pg (29.0-33.0); MEAN CORPUSCULAR HGB CONC 30.8 g/dl (32.0-37.0); MEAN CORPUSCULAR VOLUME 98.6 fl (82.0-101.0); MONOCYTE # 0.5 10^3/ul (0.3-0.9); MONOCYTES % 7.2 % (0.0-11.0); NEUTROPHILS % 70.3 % (39.0-77.0); PLATELET COUNT 195 10^3/UL (140-415); RED BLOOD COUNT 3.65 10^6/ul (4.20-5.40); RED CELL DISTRIBUTION WIDTH 15.6 % (11.5-14.5)
[2018-02-08 06:31] LABS: WHITE BLOOD COUNT 7.2 10^3/ul (4.8-10.8)
[2018-02-08 07:19] LABS: B-TYPE NATRIURETIC PEPTIDE 8370 PG/ML (0-125)
[2018-02-08 07:19] LABS: ANION GAP 16 (8-16); BLOOD UREA NITROGEN 21 mg/dl (7-20); CALCIUM 9.3 mg/dl (8.4-10.2); CARBON DIOXIDE 31 mmol/L (21-31); CHLORIDE 100 mmol/L (97-110); CREATININE 1.03 mg/dl (0.44-1.00); GLUCOSE 69 mg/dl (70-220); SODIUM 143 mmol/L (135-144)
[2018-02-08] MEDS: FISH OIL 1,000 MG CAP PO ×2 (08:10→21:28)
[2018-02-08] MEDS: IVABRADINE HCL 5 MG TABLET PO ×2 (08:10→18:09)
[2018-02-08] MEDS: SACUBITRIL/VALSARTAN (24mg-26mg) TABLET PO ×2 (08:11→21:28)
[2018-02-08] MEDS: FERROUS SULFATE (EC) 325 MG TAB PO ×2 (08:11→21:27)
[2018-02-08] MEDS: SPIRONOLACTONE 25 MG TAB PO (08:11)
[2018-02-08] MEDS: HYDROCORTISONE 1% 28.35 GM OINT TOP ×2 (08:13→21:29)
[2018-02-08] MEDS: ALBUTEROL/IPRATROPIUM (NEB) 3 ML AMP HHN ×3 (08:25→19:27)
[2018-02-08] MEDS: DIGOXIN 0.125 MG TAB PO (13:02)
[2018-02-08] MEDS: FUROSEMIDE 20 MG TAB PO (18:10)
== END 2018-02-08 21:49 | disposition home or self-care (01) | DRG 291 ==
LOC: E/R 05:13 → 6WM 08:14
DX: I13.0 Hypertensive heart and chronic kidney disease with heart failure and stage 1 through stage 4 chronic kidney disease, or unspecified chronic kidney disease (principal); I50.23 Acute on chronic systolic (congestive) heart failure; N18.9 Chronic kidney disease, unspecified; I08.1 Rheumatic disorders of both mitral and tricuspid valves; F41.9 Anxiety disorder, unspecified; D64.9 Anemia, unspecified; I42.9 Cardiomyopathy, unspecified; K21.9 Gastro-esophageal reflux disease without esophagitis; Z95.810 Presence of automatic (implantable) cardiac defibrillator
CPT/HCPCS: 36415; 71045; 80048; 80053; 80061; 82550; 82553; 83036; 83735; 83880; 84100; 84436; 84443; 84479; 84484; 85025; 87081; 93005; 93970; 94640; 94664; 96374; 99291-25

== ENCOUNTER 2018-03-02 09:49 | Inpatient (IN) | payer BC ==
[2018-03-02 10:49] LABS: ADD MAN DIFF? NO
[2018-03-02] MEDS: ONDANSETRON 4 MG INJ IV (10:49)
[2018-03-02] MEDS: FAMOTIDINE 20 MG TAB PO (10:49)
[2018-03-02] MEDS: LIDOCAINE/MYLANTA 40 ML BTL PO (10:50)
[2018-03-02] MEDS: BELLADONNA/PHENOBARBITAL TAB PO (10:50)
[2018-03-02] MEDS: SOD CHLORIDE 0.9% 500 ML IV (10:51)
[2018-03-02 10:54] LABS: BASOPHIL # 0.1 10^3/ul (0.0-0.1); EOSINOPHILS # 0.2 10^3/ul (0.0-0.5); EOSINOPHILS % 1.7 % (0.0-7.0); HEMATOCRIT 39.7 % (37.0-47.0); HEMOGLOBIN 12.6 g/dl (12.0-16.0); LYMPHOCYTES # 2.6 10^3/ul (0.8-2.9); LYMPHOCYTES % 26.1 % (15.0-51.0); MEAN CORPUSCULAR HEMOGLOBIN 30.9 pg (29.0-33.0); MEAN CORPUSCULAR HGB CONC 31.7 g/dl (32.0-37.0); MEAN CORPUSCULAR VOLUME 97.3 fl (82.0-101.0); MEAN PLATELET VOLUME 11.6 fl (7.4-10.4); MONOCYTES % 9.7 % (0.0-11.0); NEUTROPHILS % 61.2 % (39.0-77.0); PLATELET COUNT 216 10^3/UL (140-415); RED BLOOD COUNT 4.08 10^6/ul (4.20-5.40); RED CELL DISTRIBUTION WIDTH 15.5 % (11.5-14.5)
[2018-03-02 10:54] LABS: WHITE BLOOD COUNT 9.8 10^3/ul (4.8-10.8)
[2018-03-02] MEDS: KETOROLAC 15 MG INJ IV (10:56)
[2018-03-02 11:05] LABS: ADD UMIC YES; UR ASCORBIC ACID NEGATIVE (NEGATIVE); UR BACTERIA FEW /HPF (NONE SEEN); UR BILIRUBIN (Dip) 1+ mg/dL (NEGATIVE); UR BLOOD (Dip) 2+ mg/dL (NEGATIVE); UR CLARITY CLOUDY (CLEAR); UR COLOR AMBER (YELLOW); UR GLUCOSE (Dip) NEGATIVE (NEGATIVE); UR KETONES (Dip) NEGATIVE (NEGATIVE); UR LEUKOCYTE ESTERASE (Dip) 1+ Leu/ul (NEGATIVE); UR MUCUS MANY /HPF (NONE SEEN); UR NITRITE (Dip) NEGATIVE (NEGATIVE); UR RBC 6 /HPF (0-5); UR SPECIFIC GRAVITY (Dip) 1.025 (1.003-1.030); UR SQUAMOUS EPITHELIAL CELL MODERATE /HPF (FEW); UR TOTAL PROTEIN (Dip) 2+ mg/dl (NEGATIVE); UR UROBILINOGEN (Dip) 2+ mg/dL (NEGATIVE); UR WBC 24 /HPF (0-5)
[2018-03-02 11:17] LABS: INR 1.29; PROTIME 16.3 Sec (11.9-14.9); PT RATIO 1.3
[2018-03-02 11:18] LABS: PARTIAL THROMBOPLASTIN TIME 31.9 Sec (25.0-35.0)
[2018-03-02 11:22] LABS: ALANINE AMINOTRANSFERASE 38 IU/L (13-69); ALBUMIN/GLOBULIN RATIO 1.05; ALKALINE PHOSPHATASE 102 IU/L (42-121); ANION GAP 20 (8-16); ASPARTATE AMINO TRANSFERASE 35 IU/L (15-46); BILIRUBIN,INDIRECT 2.1 mg/dl (0-1.1); BILIRUBIN,TOTAL 2.1 mg/dl (0.2-1.3); BLOOD UREA NITROGEN 21 mg/dl (7-20); CALCIUM 9.9 mg/dl (8.4-10.2); CARBON DIOXIDE 25 mmol/L (21-31); CHLORIDE 101 mmol/L (97-110); CREATININE 1.26 mg/dl (0.44-1.00); GLUCOSE 108 mg/dl (70-220); LIPASE 73 U/L (23-300); POTASSIUM 4.1 mmol/L (3.5-5.1); SODIUM 142 mmol/L (135-144); TOTAL PROTEIN 7.8 g/dl (6.1-8.1)
[2018-03-02 11:25] LABS: B-TYPE NATRIURETIC PEPTIDE 14100 PG/ML (0-125); TROPONIN-I 0.019 ng/ml (0.000-0.120)
[2018-03-02] MEDS: FUROSEMIDE 40 MG INJ IV ×2 (12:38→18:32)
[2018-03-02] MEDS: CEFTRIAXONE 1 GM/50 ML (PMX) 50 ML IVPB (12:38)
[2018-03-02] MEDS ORDERED: hydrALAzine 20 MG INJ IV (13:00)
[2018-03-02] MEDS ORDERED: NITROGLYCERIN (SL) 0.4 MG TAB SL (13:00)
[2018-03-02] MEDS ORDERED: NA PHOSPHATE/BIPHOS 133 ML ENEMA PR (13:00)
[2018-03-02] MEDS ORDERED: NACL 0.9% 3 ML SYG IV (13:00)
[2018-03-02] MEDS ORDERED: ALBUTEROL/IPRATROPIUM (NEB) 3 ML AMP HHN (13:00)
[2018-03-02] MEDS ORDERED: DOCUSATE SODIUM 100 MG CAP PO (13:00)
[2018-03-02] MEDS ORDERED: LORAZEPAM 2 MG INJ IV (13:00)
[2018-03-02] MEDS ORDERED: morphine 2 MG INJ IV (13:00)
[2018-03-02] MEDS ORDERED: MAGNESIUM HYDROXIDE 30ML CUP PO (13:00)
[2018-03-02] MEDS ORDERED: HYDROCODONE/APAP (5/325) TAB PO (13:00)
[2018-03-02 13:40] LABS: CREATINE KINASE 39 IU/L (23-200)
[2018-03-02 13:53] LABS: CK INDEX 0.7; CK-MB 0.29 ng/ml (0.0-2.4); TROPONIN-I 0.023 ng/ml (0.000-0.120)
[2018-03-02 14:08] LABS: FREE T4 (FREE THYROXINE) 1.77 ng/dl (0.64-1.79)
[2018-03-02] MEDS ORDERED: CEFTRIAXONE 1 GM/50 ML (PMX) 50 ML IVPB (17:30)
[2018-03-02 19:14] LABS: CREATINE KINASE 40 IU/L (23-200)
[2018-03-02 19:27] LABS: CK INDEX 0.9; CK-MB 0.35 ng/ml (0.0-2.4)
[2018-03-02] MEDS: IVABRADINE HCL 5 MG TABLET PO (20:57)
[2018-03-02] MEDS: SACUBITRIL/VALSARTAN (49mg-51mg) TABLET PO (20:57)
[2018-03-02] MEDS: FERROUS SULFATE (EC) 325 MG TAB PO (20:57)
[2018-03-02] MEDS: HEPARIN 5,000 UNIT/0.5 ML VIAL SC (20:58)
[2018-03-02] MEDS: RANITIDINE 150 MG TAB PO (20:58)
[2018-03-03 06:31] LABS: ADD MAN DIFF? NO
[2018-03-03 06:36] LABS: BASOPHIL # 0.1 10^3/ul (0.0-0.1); BASOPHILS % 0.9 % (0.0-2.0); EOSINOPHILS # 0.1 10^3/ul (0.0-0.5); EOSINOPHILS % 1.8 % (0.0-7.0); HEMATOCRIT 40.6 % (37.0-47.0); HEMOGLOBIN 12.9 g/dl (12.0-16.0); LYMPHOCYTES # 2.1 10^3/ul (0.8-2.9); LYMPHOCYTES % 26.8 % (15.0-51.0); MEAN CORPUSCULAR HEMOGLOBIN 31.1 pg (29.0-33.0); MEAN CORPUSCULAR HGB CONC 31.8 g/dl (32.0-37.0); MEAN CORPUSCULAR VOLUME 97.8 fl (82.0-101.0); MEAN PLATELET VOLUME 11.3 fl (7.4-10.4); MONOCYTE # 0.7 10^3/ul (0.3-0.9); NEUTROPHIL # 4.7 10^3/ul (1.6-7.5); NEUTROPHILS % 61.1 % (39.0-77.0); PLATELET COUNT 171 10^3/UL (140-415); RED BLOOD COUNT 4.15 10^6/ul (4.20-5.40); RED CELL DISTRIBUTION WIDTH 15.3 % (11.5-14.5)
[2018-03-03 06:36] LABS: WHITE BLOOD COUNT 7.7 10^3/ul (4.8-10.8)
[2018-03-03 06:55] LABS: HEMOGLOBIN A1C 5.7 % (0-5.9)
[2018-03-03 07:22] LABS: ANION GAP 17 (8-16); BLOOD UREA NITROGEN 24 mg/dl (7-20); CALCIUM 10.1 mg/dl (8.4-10.2); CARBON DIOXIDE 26 mmol/L (21-31); CHLORIDE 103 mmol/L (97-110); CREATININE 1.38 mg/dl (0.44-1.00); GLUCOSE 90 mg/dl (70-220); MAGNESIUM 1.8 mg/dl (1.7-2.5); PHOSPHORUS 4.9 mg/dl (2.5-4.9); POTASSIUM 4.8 mmol/L (3.5-5.1); SODIUM 141 mmol/L (135-144)
[2018-03-03 07:23] LABS: CHOL/HDL RATIO 3.7 RATIO; HDL CHOLESTEROL 29 mg/dl (34-88); LDL CHOLESTEROL,CALCULATED 65 mg/dl; TRIGLYCERIDES 77 mg/dl (0-149)
[2018-03-03 07:23] LABS: CHOLESTEROL 109 mg/dl (100-200)
[2018-03-03] MEDS: HEPARIN 5,000 UNIT/0.5 ML VIAL SC ×2 (09:00→20:53)
[2018-03-03] MEDS: IVABRADINE HCL 5 MG TABLET PO ×2 (09:00→20:52)
[2018-03-03] MEDS: SACUBITRIL/VALSARTAN (49mg-51mg) TABLET PO ×2 (09:00→20:52)
[2018-03-03] MEDS: FERROUS SULFATE (EC) 325 MG TAB PO ×2 (09:00→20:52)
[2018-03-03] MEDS: RANITIDINE 150 MG TAB PO ×2 (09:00→20:53)
[2018-03-03] MEDS: SPIRONOLACTONE 25 MG TAB PO (09:00)
[2018-03-03] MEDS: CEFTRIAXONE 1 GM/50 ML (PMX) 50 ML IVPB (12:30)
[2018-03-03] MEDS: DIGOXIN 0.125 MG TAB PO (13:00)
[2018-03-04] MEDS: SOD CHLORIDE 0.9% 250 ML IV (01:45)
[2018-03-04] MEDS: MIDODRINE 5 MG TAB PO (01:45)
[2018-03-04] MEDS: ONDANSETRON 4 MG INJ IV (01:46)
[2018-03-04 08:11] LABS: ADD MAN DIFF? NO
[2018-03-04 08:24] LABS: WHITE BLOOD COUNT 8.1 10^3/ul (4.8-10.8)
[2018-03-04 08:25] LABS: BASOPHIL # 0.1 10^3/ul (0.0-0.1); BASOPHILS % 0.9 % (0.0-2.0); EOSINOPHILS # 0.1 10^3/ul (0.0-0.5); EOSINOPHILS % 1.5 % (0.0-7.0); HEMATOCRIT 40.2 % (37.0-47.0); HEMOGLOBIN 12.7 g/dl (12.0-16.0); LYMPHOCYTES # 1.8 10^3/ul (0.8-2.9); LYMPHOCYTES % 22.5 % (15.0-51.0); MEAN CORPUSCULAR HEMOGLOBIN 30.9 pg (29.0-33.0); MEAN CORPUSCULAR HGB CONC 31.6 g/dl (32.0-37.0); MEAN CORPUSCULAR VOLUME 97.8 fl (82.0-101.0); MEAN PLATELET VOLUME 11.4 fl (7.4-10.4); MONOCYTE # 0.8 10^3/ul (0.3-0.9); MONOCYTES % 9.3 % (0.0-11.0); NEUTROPHIL # 5.3 10^3/ul (1.6-7.5); NEUTROPHILS % 65.4 % (39.0-77.0); PLATELET COUNT 195 10^3/UL (140-415); RED BLOOD COUNT 4.11 10^6/ul (4.20-5.40); RED CELL DISTRIBUTION WIDTH 15.5 % (11.5-14.5)
[2018-03-04 08:49] LABS: ANION GAP 18 (8-16); BLOOD UREA NITROGEN 27 mg/dl (7-20); CALCIUM 10.1 mg/dl (8.4-10.2); CARBON DIOXIDE 26 mmol/L (21-31); CHLORIDE 102 mmol/L (97-110); CREATININE 1.13 mg/dl (0.44-1.00); GLUCOSE 65 mg/dl (70-220); POTASSIUM 4.6 mmol/L (3.5-5.1); SODIUM 141 mmol/L (135-144)
[2018-03-04] MEDS: HEPARIN 5,000 UNIT/0.5 ML VIAL SC ×2 (09:00→20:56)
[2018-03-04] MEDS: RANITIDINE 150 MG TAB PO ×2 (09:00→20:25)
[2018-03-04] MEDS: SACUBITRIL/VALSARTAN (49mg-51mg) TABLET PO ×2 (09:00→20:25)
[2018-03-04] MEDS: SPIRONOLACTONE 25 MG TAB PO (09:00)
[2018-03-04] MEDS: IVABRADINE HCL 5 MG TABLET PO ×2 (09:00→20:25)
[2018-03-04] MEDS: FERROUS SULFATE (EC) 325 MG TAB PO ×2 (09:00→20:25)
[2018-03-04] MEDS ORDERED: ONDANSETRON 4 MG TAB PO (12:00)
[2018-03-04] MEDS: CEFTRIAXONE 1 GM/50 ML (PMX) 50 ML IVPB (12:23)
[2018-03-04] MEDS: DIGOXIN 0.125 MG TAB PO (12:23)
[2018-03-05] MEDS: ACETAMINOPHEN 325 MG TAB PO (05:24)
[2018-03-05 06:11] LABS: ADD MAN DIFF? NO
[2018-03-05 06:13] LABS: BASOPHIL # 0.1 10^3/ul (0.0-0.1); EOSINOPHILS # 0.2 10^3/ul (0.0-0.5); EOSINOPHILS % 2.1 % (0.0-7.0); HEMATOCRIT 36.8 % (37.0-47.0); HEMOGLOBIN 11.7 g/dl (12.0-16.0); LYMPHOCYTES # 2.2 10^3/ul (0.8-2.9); LYMPHOCYTES % 27.7 % (15.0-51.0); MEAN CORPUSCULAR HEMOGLOBIN 31.1 pg (29.0-33.0); MEAN CORPUSCULAR HGB CONC 31.8 g/dl (32.0-37.0); MEAN CORPUSCULAR VOLUME 97.9 fl (82.0-101.0); MEAN PLATELET VOLUME 11.1 fl (7.4-10.4); MONOCYTES % 12.6 % (0.0-11.0); NEUTROPHIL # 4.4 10^3/ul (1.6-7.5); NEUTROPHILS % 56.1 % (39.0-77.0); PLATELET COUNT 181 10^3/UL (140-415); RED BLOOD COUNT 3.76 10^6/ul (4.20-5.40); RED CELL DISTRIBUTION WIDTH 15.7 % (11.5-14.5)
[2018-03-05 06:13] LABS: WHITE BLOOD COUNT 7.8 10^3/ul (4.8-10.8)
[2018-03-05 07:04] LABS: ANION GAP 15 (8-16); CARBON DIOXIDE 26 mmol/L (21-31); CHLORIDE 101 mmol/L (97-110); CREATININE 1.18 mg/dl (0.44-1.00); GLUCOSE 115 mg/dl (70-220); POTASSIUM 4.2 mmol/L (3.5-5.1); SODIUM 138 mmol/L (135-144)
[2018-03-05 07:48] LABS: BLOOD UREA NITROGEN 31 mg/dl (7-20)
[2018-03-05] MEDS: SPIRONOLACTONE 25 MG TAB PO (09:23)
[2018-03-05] MEDS: IVABRADINE HCL 5 MG TABLET PO (09:24)
[2018-03-05] MEDS: FERROUS SULFATE (EC) 325 MG TAB PO (09:24)
[2018-03-05] MEDS: RANITIDINE 150 MG TAB PO (09:24)
[2018-03-05] MEDS: SACUBITRIL/VALSARTAN (49mg-51mg) TABLET PO (09:24)
[2018-03-05] MEDS: HEPARIN 5,000 UNIT/0.5 ML VIAL SC (09:34)
[2018-03-05] MEDS: CEFTRIAXONE 1 GM/50 ML (PMX) 50 ML IVPB (13:25)
[2018-03-05] MEDS: DIGOXIN 0.125 MG TAB PO (13:26)
== END 2018-03-05 14:35 | disposition home or self-care (01) | DRG 291 ==
LOC: E/R 09:49 → TEL 12:51
DX: I13.0 Hypertensive heart and chronic kidney disease with heart failure and stage 1 through stage 4 chronic kidney disease, or unspecified chronic kidney disease (principal); I50.21 Acute systolic (congestive) heart failure; I42.9 Cardiomyopathy, unspecified; K80.20 Calculus of gallbladder without cholecystitis without obstruction; N18.9 Chronic kidney disease, unspecified; Z95.0 Presence of cardiac pacemaker; J44.9 Chronic obstructive pulmonary disease, unspecified; F41.9 Anxiety disorder, unspecified; K21.9 Gastro-esophageal reflux disease without esophagitis
CPT/HCPCS: 36415; 71045; 76705; 78226; 80048; 80053; 80061; 81001; 81025; 82550; 82553; 83036; 83690; 83735; 83880; 84100; 84439; 84443; 84484; 85025; 85610; 85730; 93005; 96374; 96375; 97161; 99285-25

== ENCOUNTER 2018-04-21 10:24 | Emergency (ER) | payer BC ==
[2018-04-21 11:26] LABS: ADD MAN DIFF? NO
[2018-04-21 11:31] LABS: WHITE BLOOD COUNT 9.4 10^3/ul (4.8-10.8)
[2018-04-21 11:31] LABS: BASOPHILS % 0.3 % (0.0-2.0); EOSINOPHILS % 0.3 % (0.0-7.0); HEMATOCRIT 37.7 % (37.0-47.0); HEMOGLOBIN 12.1 g/dl (12.0-16.0); LYMPHOCYTES # 0.7 10^3/ul (0.8-2.9); LYMPHOCYTES % 7.9 % (15.0-51.0); MEAN CORPUSCULAR HEMOGLOBIN 31.1 pg (29.0-33.0); MEAN CORPUSCULAR HGB CONC 32.1 g/dl (32.0-37.0); MEAN CORPUSCULAR VOLUME 96.9 fl (82.0-101.0); MEAN PLATELET VOLUME 10.8 fl (7.4-10.4); MONOCYTE # 0.6 10^3/ul (0.3-0.9); MONOCYTES % 6.1 % (0.0-11.0); PLATELET COUNT 199 10^3/UL (140-415); RED BLOOD COUNT 3.89 10^6/ul (4.20-5.40); RED CELL DISTRIBUTION WIDTH 15.8 % (11.5-14.5)
[2018-04-21 11:47] LABS: ADD UMIC YES; UR ASCORBIC ACID NEGATIVE (NEGATIVE); UR BILIRUBIN (Dip) NEGATIVE (NEGATIVE); UR BLOOD (Dip) 1+ mg/dL (NEGATIVE); UR CLARITY CLOUDY (CLEAR); UR COLOR AMBER (YELLOW); UR GLUCOSE (Dip) NEGATIVE (NEGATIVE); UR KETONES (Dip) NEGATIVE (NEGATIVE); UR LEUKOCYTE ESTERASE (Dip) TRACE Leu/ul (NEGATIVE); UR MUCUS MODERATE /HPF (NONE SEEN); UR NITRITE (Dip) NEGATIVE (NEGATIVE); UR RBC 3 /HPF (0-5); UR SPECIFIC GRAVITY (Dip) 1.026 (1.003-1.030); UR SQUAMOUS EPITHELIAL CELL MODERATE /HPF (FEW); UR TOTAL PROTEIN (Dip) 3+ mg/dl (NEGATIVE); UR UROBILINOGEN (Dip) 1+ mg/dL (NEGATIVE); UR WBC 18 /HPF (0-5)
[2018-04-21 11:58] LABS: ALANINE AMINOTRANSFERASE 35 IU/L (13-69); ALBUMIN 4.4 g/dl (3.3-4.9); ALBUMIN/GLOBULIN RATIO 1.57; ALKALINE PHOSPHATASE 95 IU/L (42-121); ANION GAP 15 (5-13); ASPARTATE AMINO TRANSFERASE 33 IU/L (15-46); BILIRUBIN,INDIRECT 1.1 mg/dl (0-1.1); BILIRUBIN,TOTAL 1.1 mg/dl (0.2-1.3); BLOOD UREA NITROGEN 20 mg/dl (7-20); CALCIUM 9.2 mg/dl (8.4-10.2); CARBON DIOXIDE 25 mmol/L (21-31); CHLORIDE 101 mmol/L (97-110); Estimated GFR > 60 mL/min (>60); GLUCOSE 139 mg/dl (70-220); LIPASE 72 U/L (23-300); SODIUM 141 mmol/L (135-144); TOTAL PROTEIN 7.2 g/dl (6.1-8.1)
[2018-04-21 12:10] LABS: TROPONIN-I 0.017 ng/ml (0.000-0.120)
== END 2018-04-21 13:13 | disposition home or self-care (01) ==
LOC: E/R 10:24
DX: K80.50 Calculus of bile duct without cholangitis or cholecystitis without obstruction (principal); I13.0 Hypertensive heart and chronic kidney disease with heart failure and stage 1 through stage 4 chronic kidney disease, or unspecified chronic kidney disease; N18.9 Chronic kidney disease, unspecified; I50.9 Heart failure, unspecified; J44.9 Chronic obstructive pulmonary disease, unspecified; Z95.810 Presence of automatic (implantable) cardiac defibrillator
CPT/HCPCS: 36415; 71045; 76705; 80053; 81001; 81025; 83690; 84484; 85025; 99285-25

== ENCOUNTER 2018-05-24 07:35 | Inpatient (IN) | payer BC ==
[2018-05-24 08:50] LABS: ADD MAN DIFF? NO
[2018-05-24 08:54] LABS: WHITE BLOOD COUNT 9.8 10^3/ul (4.8-10.8)
[2018-05-24 08:54] LABS: BASOPHIL # 0.1 10^3/ul (0.0-0.1); BASOPHILS % 0.6 % (0.0-2.0); EOSINOPHILS # 0.1 10^3/ul (0.0-0.5); EOSINOPHILS % 0.6 % (0.0-7.0); HEMATOCRIT 39.6 % (37.0-47.0); HEMOGLOBIN 12.1 g/dl (12.0-16.0); LYMPHOCYTES # 1.7 10^3/ul (0.8-2.9); LYMPHOCYTES % 16.9 % (15.0-51.0); MEAN CORPUSCULAR HEMOGLOBIN 30.3 pg (29.0-33.0); MEAN CORPUSCULAR HGB CONC 30.6 g/dl (32.0-37.0); MEAN PLATELET VOLUME 10.6 fl (7.4-10.4); MONOCYTE # 0.9 10^3/ul (0.3-0.9); MONOCYTES % 9.2 % (0.0-11.0); NEUTROPHIL # 7.1 10^3/ul (1.6-7.5); NEUTROPHILS % 72.1 % (39.0-77.0); PLATELET COUNT 202 10^3/UL (140-415); RED CELL DISTRIBUTION WIDTH 16.3 % (11.5-14.5)
[2018-05-24] MEDS: ONDANSETRON 4 MG INJ IV ×2 (09:01→09:31)
[2018-05-24 09:12] LABS: ALANINE AMINOTRANSFERASE 32 IU/L (13-69); ALBUMIN 4.4 g/dl (3.3-4.9); ALBUMIN/GLOBULIN RATIO 1.57; ALKALINE PHOSPHATASE 96 IU/L (42-121); ANION GAP 17 (5-13); ASPARTATE AMINO TRANSFERASE 34 IU/L (15-46); BILIRUBIN,INDIRECT 2.6 mg/dl (0-1.1); BILIRUBIN,TOTAL 2.6 mg/dl (0.2-1.3); BLOOD UREA NITROGEN 26 mg/dl (7-20); CALCIUM 9.4 mg/dl (8.4-10.2); CARBON DIOXIDE 22 mmol/L (21-31); CHLORIDE 99 mmol/L (97-110); CREATINE KINASE 40 IU/L (23-200); CREATININE 1.16 mg/dl (0.44-1.00); Estimated GFR 51 mL/min (>60); GLUCOSE 106 mg/dl (70-220); POTASSIUM 4.3 mmol/L (3.5-5.1); SODIUM 138 mmol/L (135-144); TOTAL PROTEIN 7.2 g/dl (6.1-8.1)
[2018-05-24 09:14] LABS: INR 1.35; PROTIME 16.9 Sec (11.9-14.9); PT RATIO 1.3
[2018-05-24 09:15] LABS: PARTIAL THROMBOPLASTIN TIME 31.1 Sec (23.0-35.0)
[2018-05-24 09:24] LABS: B-TYPE NATRIURETIC PEPTIDE 18900 PG/ML (0-125); TROPONIN-I 0.031 ng/ml (0.000-0.120)
[2018-05-24 09:31] LABS: ADD UMIC YES; UR ASCORBIC ACID NEGATIVE (NEGATIVE); UR BILIRUBIN (Dip) 2+ mg/dL (NEGATIVE); UR BLOOD (Dip) 2+ mg/dL (NEGATIVE); UR CLARITY CLOUDY (CLEAR); UR COLOR AMBER (YELLOW); UR GLUCOSE (Dip) NEGATIVE (NEGATIVE); UR KETONES (Dip) TRACE mg/dL (NEGATIVE); UR LEUKOCYTE ESTERASE (Dip) NEGATIVE Leu/ul (NEGATIVE); UR MUCUS MANY /HPF (NONE SEEN); UR NITRITE (Dip) NEGATIVE (NEGATIVE); UR RBC 6 /HPF (0-5); UR SPECIFIC GRAVITY (Dip) 1.032 (1.003-1.030); UR SQUAMOUS EPITHELIAL CELL MODERATE /HPF (FEW); UR TOTAL PROTEIN (Dip) 3+ mg/dl (NEGATIVE); UR UROBILINOGEN (Dip) 2+ mg/dL (NEGATIVE); UR WBC 9 /HPF (0-5)
[2018-05-24] MEDS: morphine 4 MG/ML VIAL IV (09:31)
[2018-05-24] MEDS: ALBUTEROL 0.5% (NEB) 2.5 MG/0.5 ML AMP NEB (10:04)
[2018-05-24] MEDS: IPRATROPIUM (NEB) 0.5 MG/2.5 ML AMP NEB (10:04)
[2018-05-24] MEDS ORDERED: ONDANSETRON 4 MG INJ IV (12:00)
[2018-05-24] MEDS ORDERED: ACETAMINOPHEN 325 MG TAB PO (12:00)
[2018-05-24] MEDS ORDERED: NACL 0.9% 3 ML SYG IV (13:30)
[2018-05-24] MEDS ORDERED: HEPARIN 5,000 UNIT/0.5 ML VIAL ×2 (14:31→20:46)
[2018-05-24] MEDS: ACETAMINOPHEN 325 MG TAB PO ×2 (14:39→22:07)
[2018-05-24] MEDS: DIGOXIN 0.125 MG TAB PO (14:40)
[2018-05-24] MEDS: SPIRONOLACTONE 25 MG TAB PO (14:40)
[2018-05-24] MEDS: HEPARIN 5,000 UNIT/1 ML VIAL SC ×2 (14:48→22:24)
[2018-05-24] MEDS: FUROSEMIDE 20 MG TAB PO (18:09)
[2018-05-24] MEDS: FERROUS SULFATE (EC) 325 MG TAB PO (22:06)
[2018-05-25] MEDS: ONDANSETRON 4 MG INJ IV ×2 (02:04→21:55)
[2018-05-25] MEDS: ZOLPIDEM 5 MG TAB PO (02:04)
[2018-05-25 05:06] LABS: ADD MAN DIFF? NO
[2018-05-25 05:18] LABS: BASOPHIL # 0.1 10^3/ul (0.0-0.1); BASOPHILS % 0.7 % (0.0-2.0); EOSINOPHILS # 0.1 10^3/ul (0.0-0.5); EOSINOPHILS % 0.8 % (0.0-7.0); HEMATOCRIT 32.4 % (37.0-47.0); HEMOGLOBIN 10.5 g/dl (12.0-16.0); LYMPHOCYTES # 1.2 10^3/ul (0.8-2.9); LYMPHOCYTES % 16.1 % (15.0-51.0); MEAN CORPUSCULAR HEMOGLOBIN 31.3 pg (29.0-33.0); MEAN CORPUSCULAR HGB CONC 32.4 g/dl (32.0-37.0); MEAN CORPUSCULAR VOLUME 96.7 fl (82.0-101.0); MEAN PLATELET VOLUME 10.8 fl (7.4-10.4); MONOCYTE # 0.9 10^3/ul (0.3-0.9); MONOCYTES % 11.7 % (0.0-11.0); NEUTROPHIL # 5.3 10^3/ul (1.6-7.5); NEUTROPHILS % 69.9 % (39.0-77.0); PLATELET COUNT 155 10^3/UL (140-415); RED BLOOD COUNT 3.35 10^6/ul (4.20-5.40); RED CELL DISTRIBUTION WIDTH 16.4 % (11.5-14.5)
[2018-05-25 05:18] LABS: WHITE BLOOD COUNT 7.6 10^3/ul (4.8-10.8)
[2018-05-25 06:04] LABS: CREATINE KINASE 36 IU/L (23-200)
[2018-05-25 06:04] LABS: PHOSPHORUS 3.9 mg/dl (2.5-4.9)
[2018-05-25 06:09] LABS: CK INDEX 2.1; CK-MB 0.75 ng/ml (0.0-2.4); TROPONIN-I 0.032 ng/ml (0.000-0.120)
[2018-05-25 06:15] LABS: ALANINE AMINOTRANSFERASE 28 IU/L (13-69); ALBUMIN 3.5 g/dl (3.3-4.9); ALKALINE PHOSPHATASE 85 IU/L (42-121); ANION GAP 11 (5-13); ASPARTATE AMINO TRANSFERASE 31 IU/L (15-46); BILIRUBIN,INDIRECT 1.7 mg/dl (0-1.1); BILIRUBIN,TOTAL 1.7 mg/dl (0.2-1.3); BLOOD UREA NITROGEN 30 mg/dl (7-20); CALCIUM 8.9 mg/dl (8.4-10.2); CARBON DIOXIDE 23 mmol/L (21-31); CHLORIDE 100 mmol/L (97-110); CREATININE 1.24 mg/dl (0.44-1.00); Estimated GFR 47 mL/min (>60); GLUCOSE 110 mg/dl (70-220); POTASSIUM 3.9 mmol/L (3.5-5.1); SODIUM 134 mmol/L (135-144); TOTAL PROTEIN 6.4 g/dl (6.1-8.1)
[2018-05-25] MEDS ORDERED: HEPARIN 5,000 UNIT/0.5 ML VIAL ×2 (06:35→14:55)
[2018-05-25] MEDS: FUROSEMIDE 20 MG TAB PO (06:40)
[2018-05-25] MEDS: HEPARIN 5,000 UNIT/1 ML VIAL SC ×3 (06:44→22:07)
[2018-05-25] MEDS: SPIRONOLACTONE 25 MG TAB PO (09:09)
[2018-05-25] MEDS: POTASSIUM CHLORIDE (SR) 20 MEQ TAB PO (09:09)
[2018-05-25] MEDS: FERROUS SULFATE (EC) 325 MG TAB PO ×2 (09:09→21:00)
[2018-05-25] MEDS: INFLUENZA VIRUS VACCINE 0.5 ML (DISPENSING) IM* (13:00)
[2018-05-25] MEDS: FUROSEMIDE 20 MG INJ IV ×2 (13:01→18:06)
[2018-05-25] MEDS: DIGOXIN 0.125 MG TAB PO (13:01)
[2018-05-25] MEDS: ACETAMINOPHEN 325 MG TAB PO (15:12)
[2018-05-25] MEDS ORDERED: IVABRADINE HCL 5 MG TABLET PO (18:00)
[2018-05-25] MEDS ORDERED: HYDROCODONE/HOMATROPINE 5ML CUP PO (18:00)
[2018-05-25] MEDS: HYDROCODONE/APAP (5/325) TAB PO (18:12)
[2018-05-26 05:17] LABS: WHITE BLOOD COUNT 7.5 10^3/ul (4.8-10.8)
[2018-05-26 05:17] LABS: ADD MAN DIFF? NO; BASOPHIL # 0.1 10^3/ul (0.0-0.1); BASOPHILS % 0.8 % (0.0-2.0); EOSINOPHILS # 0.1 10^3/ul (0.0-0.5); EOSINOPHILS % 1.9 % (0.0-7.0); HEMATOCRIT 33.8 % (37.0-47.0); HEMOGLOBIN 10.7 g/dl (12.0-16.0); LYMPHOCYTES # 1.7 10^3/ul (0.8-2.9); LYMPHOCYTES % 22.9 % (15.0-51.0); MEAN CORPUSCULAR HGB CONC 31.7 g/dl (32.0-37.0); MEAN PLATELET VOLUME 10.9 fl (7.4-10.4); MONOCYTE # 0.8 10^3/ul (0.3-0.9); MONOCYTES % 10.8 % (0.0-11.0); NEUTROPHIL # 4.8 10^3/ul (1.6-7.5); NEUTROPHILS % 63.1 % (39.0-77.0); PLATELET COUNT 166 10^3/UL (140-415); RED BLOOD COUNT 3.45 10^6/ul (4.20-5.40); RED CELL DISTRIBUTION WIDTH 16.5 % (11.5-14.5)
[2018-05-26 05:35] LABS: CHOLESTEROL 93 mg/dl (100-200); DIGOXIN 0.8 ng/ml (1.0-2.0)
[2018-05-26 05:35] LABS: HDL CHOLESTEROL 23 mg/dl (34-88); LDL CHOLESTEROL,CALCULATED 57 mg/dl; TRIGLYCERIDES 65 mg/dl (0-149)
[2018-05-26 05:37] LABS: ALANINE AMINOTRANSFERASE 29 IU/L (13-69); ALBUMIN 3.7 g/dl (3.3-4.9); ALBUMIN/GLOBULIN RATIO 1.42; ALKALINE PHOSPHATASE 79 IU/L (42-121); ANION GAP 13 (5-13); ASPARTATE AMINO TRANSFERASE 29 IU/L (15-46); BILIRUBIN,INDIRECT 1.2 mg/dl (0-1.1); BILIRUBIN,TOTAL 1.2 mg/dl (0.2-1.3); BLOOD UREA NITROGEN 35 mg/dl (7-20); CALCIUM 9.2 mg/dl (8.4-10.2); CARBON DIOXIDE 27 mmol/L (21-31); CHLORIDE 96 mmol/L (97-110); CREATININE 1.55 mg/dl (0.44-1.00); Estimated GFR 36 mL/min (>60); GLUCOSE 96 mg/dl (70-220); LIPASE 78 U/L (23-300); POTASSIUM 4.5 mmol/L (3.5-5.1); SODIUM 136 mmol/L (135-144); TOTAL PROTEIN 6.3 g/dl (6.1-8.1)
[2018-05-26 05:53] LABS: PARTIAL THROMBOPLASTIN TIME 33.3 Sec (23.0-35.0)
[2018-05-26 06:39] LABS: FOLATE 11.1 ng/ml (2.8-20.0)
[2018-05-26] MEDS: FUROSEMIDE 20 MG INJ IV ×2 (06:42→18:02)
[2018-05-26] MEDS: HEPARIN 5,000 UNIT/1 ML VIAL SC ×2 (06:46→20:25)
[2018-05-26] MEDS: HYDROCODONE/APAP (5/325) TAB PO ×2 (08:42→20:32)
[2018-05-26] MEDS: ONDANSETRON 4 MG INJ IV ×2 (08:42→16:42)
[2018-05-26] MEDS: SPIRONOLACTONE 25 MG TAB PO (08:42)
[2018-05-26] MEDS: THIAMINE 100 MG TAB PO (08:42)
[2018-05-26] MEDS: FERROUS SULFATE (EC) 325 MG TAB PO ×2 (08:43→20:27)
[2018-05-26 09:08] LABS: HEMOGLOBIN A1C 5.4 % (0-5.9)
[2018-05-26] MEDS: BISACODYL (EC) 5 MG TAB PO (10:31)
[2018-05-26] MEDS: DIGOXIN 0.125 MG TAB PO (13:15)
[2018-05-26] MEDS ORDERED: SPIRONOLACTONE 25 MG TAB PO (13:30)
[2018-05-27] MEDS: ONDANSETRON 4 MG INJ IV ×4 (01:27→22:50)
[2018-05-27] MEDS: FUROSEMIDE 20 MG INJ IV ×2 (05:46→17:56)
[2018-05-27 06:26] LABS: ADD MAN DIFF? NO
[2018-05-27 06:32] LABS: BASOPHIL # 0.1 10^3/ul (0.0-0.1); BASOPHILS % 0.7 % (0.0-2.0); EOSINOPHILS # 0.1 10^3/ul (0.0-0.5); EOSINOPHILS % 0.7 % (0.0-7.0); HEMATOCRIT 36.2 % (37.0-47.0); HEMOGLOBIN 11.5 g/dl (12.0-16.0); LYMPHOCYTES # 1.5 10^3/ul (0.8-2.9); LYMPHOCYTES % 19.8 % (15.0-51.0); MEAN CORPUSCULAR HEMOGLOBIN 30.8 pg (29.0-33.0); MEAN CORPUSCULAR HGB CONC 31.8 g/dl (32.0-37.0); MEAN CORPUSCULAR VOLUME 97.1 fl (82.0-101.0); MEAN PLATELET VOLUME 11.8 fl (7.4-10.4); MONOCYTE # 0.7 10^3/ul (0.3-0.9); MONOCYTES % 9.6 % (0.0-11.0); NEUTROPHIL # 5.1 10^3/ul (1.6-7.5); NEUTROPHILS % 68.7 % (39.0-77.0); PLATELET COUNT 178 10^3/UL (140-415); RED BLOOD COUNT 3.73 10^6/ul (4.20-5.40); RED CELL DISTRIBUTION WIDTH 16.6 % (11.5-14.5)
[2018-05-27 06:32] LABS: WHITE BLOOD COUNT 7.4 10^3/ul (4.8-10.8)
[2018-05-27 07:01] LABS: INR 1.29; PROTIME 16.3 Sec (11.9-14.9); PT RATIO 1.3
[2018-05-27 07:11] LABS: MAGNESIUM 2.1 mg/dl (1.7-2.5)
[2018-05-27] MEDS: THIAMINE 100 MG TAB PO (08:42)
[2018-05-27] MEDS: FERROUS SULFATE (EC) 325 MG TAB PO ×2 (08:42→20:29)
[2018-05-27] MEDS: HEPARIN 5,000 UNIT/1 ML VIAL SC ×2 (08:53→20:34)
[2018-05-27 09:45] LABS: DIGOXIN 1.1 ng/ml (1.0-2.0)
[2018-05-27 09:56] LABS: ALANINE AMINOTRANSFERASE 36 IU/L (13-69); ALBUMIN 4.1 g/dl (3.3-4.9); ALBUMIN/GLOBULIN RATIO 1.46; ALKALINE PHOSPHATASE 88 IU/L (42-121); ANION GAP 16 (5-13); ASPARTATE AMINO TRANSFERASE 46 IU/L (15-46); BILIRUBIN,INDIRECT 1.4 mg/dl (0-1.1); BILIRUBIN,TOTAL 1.4 mg/dl (0.2-1.3); BLOOD UREA NITROGEN 36 mg/dl (7-20); CALCIUM 9.5 mg/dl (8.4-10.2); CARBON DIOXIDE 26 mmol/L (21-31); CHLORIDE 93 mmol/L (97-110); CREATININE 1.51 mg/dl (0.44-1.00); Estimated GFR 37 mL/min (>60); GLUCOSE 92 mg/dl (70-220); LIPASE 48 U/L (23-300); POTASSIUM 4.1 mmol/L (3.5-5.1); SODIUM 135 mmol/L (135-144); TOTAL PROTEIN 6.9 g/dl (6.1-8.1)
[2018-05-27] MEDS: DIGOXIN 0.125 MG TAB PO (12:24)
[2018-05-27] MEDS: ACETAMINOPHEN 325 MG TAB PO (18:12)
[2018-05-27] MEDS: FAMOTIDINE 20 MG INJ IV (22:50)
[2018-05-27] MEDS: SENNA/DOCUSATE NA (8.6MG/50MG) TAB PO (23:27)
[2018-05-28] MEDS: ACETAMINOPHEN 325 MG TAB PO (01:48)
[2018-05-28] MEDS: FUROSEMIDE 20 MG INJ IV (05:26)
[2018-05-28] MEDS: ONDANSETRON 4 MG INJ IV ×3 (05:26→20:27)
[2018-05-28 05:35] LABS: ADD MAN DIFF? NO
[2018-05-28 06:00] LABS: WHITE BLOOD COUNT 6.5 10^3/ul (4.8-10.8)
[2018-05-28 06:00] LABS: BASOPHIL # 0.1 10^3/ul (0.0-0.1); BASOPHILS % 0.9 % (0.0-2.0); EOSINOPHILS # 0.1 10^3/ul (0.0-0.5); EOSINOPHILS % 1.1 % (0.0-7.0); HEMATOCRIT 35.5 % (37.0-47.0); HEMOGLOBIN 11.4 g/dl (12.0-16.0); LYMPHOCYTES # 1.5 10^3/ul (0.8-2.9); LYMPHOCYTES % 22.8 % (15.0-51.0); MEAN CORPUSCULAR HEMOGLOBIN 30.8 pg (29.0-33.0); MEAN CORPUSCULAR HGB CONC 32.1 g/dl (32.0-37.0); MEAN CORPUSCULAR VOLUME 95.9 fl (82.0-101.0); MEAN PLATELET VOLUME 11.7 fl (7.4-10.4); MONOCYTE # 0.7 10^3/ul (0.3-0.9); NEUTROPHIL # 4.2 10^3/ul (1.6-7.5); NEUTROPHILS % 63.7 % (39.0-77.0); PLATELET COUNT 180 10^3/UL (140-415); RED CELL DISTRIBUTION WIDTH 16.7 % (11.5-14.5)
[2018-05-28 06:02] LABS: INR 1.46; PT RATIO 1.4
[2018-05-28 06:10] LABS: LACTIC ACID 1.7 mmol/L (0.5-2.0)
[2018-05-28 06:12] LABS: LIPASE 34 U/L (23-300)
[2018-05-28 06:25] LABS: ALANINE AMINOTRANSFERASE 34 IU/L (13-69); ALKALINE PHOSPHATASE 87 IU/L (42-121); ANION GAP 14 (5-13); ASPARTATE AMINO TRANSFERASE 35 IU/L (15-46); BILIRUBIN,INDIRECT 1.4 mg/dl (0-1.1); BLOOD UREA NITROGEN 34 mg/dl (7-20); CALCIUM 9.1 mg/dl (8.4-10.2); CARBON DIOXIDE 24 mmol/L (21-31); CHLORIDE 96 mmol/L (97-110); CREATININE 1.51 mg/dl (0.44-1.00); Estimated GFR 37 mL/min (>60); GLUCOSE 92 mg/dl (70-220); POTASSIUM 3.4 mmol/L (3.5-5.1); SODIUM 134 mmol/L (135-144)
[2018-05-28 06:26] LABS: ALBUMIN 3.5 g/dl (3.3-4.9); BILIRUBIN,TOTAL 1.4 mg/dl (0.2-1.3); TOTAL PROTEIN 6.4 g/dl (6.1-8.1)
[2018-05-28] MEDS: FERROUS SULFATE (EC) 325 MG TAB PO ×2 (09:00→20:51)
[2018-05-28] MEDS: HEPARIN 5,000 UNIT/1 ML VIAL SC ×2 (09:00→20:57)
[2018-05-28] MEDS: THIAMINE 100 MG TAB PO (09:00)
[2018-05-28] MEDS: CLARITHROMYCIN 500 MG TAB PO ×2 (09:01→20:51)
[2018-05-28] MEDS: LANSOPRAZOLE 30 MG CAP PO ×2 (09:01→20:50)
[2018-05-28] MEDS: AMOXICILLIN 500 MG CAP PO ×2 (09:01→20:51)
[2018-05-28] MEDS: DIGOXIN 0.125 MG TAB PO (12:34)
[2018-05-28] MEDS ORDERED: SPIRONOLACTONE 25 MG TAB PO (13:30)
[2018-05-28] MEDS: POTASSIUM CHLORIDE 20 MEQ POWDER FOR ORAL SOLN PO (14:56)
[2018-05-28] MEDS: ONDANSETRON (ODT) 4 MG TAB ODT (18:09)
[2018-05-29] MEDS: HYDROCODONE/APAP (5/325) TAB PO (00:52)
[2018-05-29] MEDS: METOCLOPRAMIDE 10 MG INJ IV ×3 (01:17→19:12)
[2018-05-29 05:30] LABS: ADD MAN DIFF? NO
[2018-05-29 05:42] LABS: BASOPHILS % 0.6 % (0.0-2.0); EOSINOPHILS % 0.3 % (0.0-7.0); HEMATOCRIT 33.3 % (37.0-47.0); HEMOGLOBIN 10.6 g/dl (12.0-16.0); LYMPHOCYTES # 1.2 10^3/ul (0.8-2.9); LYMPHOCYTES % 17.3 % (15.0-51.0); MEAN CORPUSCULAR HEMOGLOBIN 30.8 pg (29.0-33.0); MEAN CORPUSCULAR HGB CONC 31.8 g/dl (32.0-37.0); MEAN CORPUSCULAR VOLUME 96.8 fl (82.0-101.0); MEAN PLATELET VOLUME 11.3 fl (7.4-10.4); MONOCYTE # 0.8 10^3/ul (0.3-0.9); MONOCYTES % 11.5 % (0.0-11.0); NEUTROPHIL # 4.6 10^3/ul (1.6-7.5); NEUTROPHILS % 69.8 % (39.0-77.0); PLATELET COUNT 165 10^3/UL (140-415); RED BLOOD COUNT 3.44 10^6/ul (4.20-5.40); RED CELL DISTRIBUTION WIDTH 17.1 % (11.5-14.5)
[2018-05-29 05:42] LABS: WHITE BLOOD COUNT 6.6 10^3/ul (4.8-10.8)
[2018-05-29] MEDS: ONDANSETRON 4 MG INJ IV (05:46)
[2018-05-29 05:53] LABS: INR 1.51; PARTIAL THROMBOPLASTIN TIME 33.9 Sec (23.0-35.0); PROTIME 18.5 Sec (11.9-14.9); PT RATIO 1.4
[2018-05-29 06:18] LABS: ALANINE AMINOTRANSFERASE 44 IU/L (13-69); ALBUMIN 3.4 g/dl (3.3-4.9); ALBUMIN/GLOBULIN RATIO 1.13; ALKALINE PHOSPHATASE 92 IU/L (42-121); ANION GAP 14 (5-13); ASPARTATE AMINO TRANSFERASE 35 IU/L (15-46); BILIRUBIN,INDIRECT 1.6 mg/dl (0-1.1); BILIRUBIN,TOTAL 1.6 mg/dl (0.2-1.3); BLOOD UREA NITROGEN 36 mg/dl (7-20); CALCIUM 9.1 mg/dl (8.4-10.2); CARBON DIOXIDE 25 mmol/L (21-31); CHLORIDE 96 mmol/L (97-110); CREATININE 1.65 mg/dl (0.44-1.00); Estimated GFR 34 mL/min (>60); GLUCOSE 103 mg/dl (70-220); POTASSIUM 4.7 mmol/L (3.5-5.1); SODIUM 135 mmol/L (135-144); TOTAL PROTEIN 6.4 g/dl (6.1-8.1)
[2018-05-29 06:19] LABS: DIGOXIN 1.8 ng/ml (1.0-2.0)
[2018-05-29] MEDS: AMOXICILLIN 500 MG CAP PO ×2 (09:24→21:13)
[2018-05-29] MEDS: FERROUS SULFATE (EC) 325 MG TAB PO (09:24)
[2018-05-29] MEDS: CLARITHROMYCIN 500 MG TAB PO ×2 (09:24→21:13)
[2018-05-29] MEDS: LANSOPRAZOLE 30 MG CAP PO ×2 (09:24→21:13)
[2018-05-29] MEDS: FUROSEMIDE 20 MG TAB PO (09:25)
[2018-05-29] MEDS: THIAMINE 100 MG TAB PO (09:25)
[2018-05-29] MEDS: POTASSIUM CHLORIDE 20 MEQ POWDER FOR ORAL SOLN PO (09:25)
[2018-05-29] MEDS: PROPOFOL 20 ML (12:26)
[2018-05-29] MEDS: ETOMIDATE 20 MG INJ (12:26)
[2018-05-29] MEDS: D5W-0.45 NACL + KCL 10 MEQ 1,000 ML IV (15:08)
[2018-05-29] MEDS: ZOLPIDEM 5 MG TAB PO (22:23)
[2018-05-30 06:13] LABS: ADD MAN DIFF? NO
[2018-05-30 06:23] LABS: BASOPHIL # 0.1 10^3/ul (0.0-0.1); BASOPHILS % 0.7 % (0.0-2.0); EOSINOPHILS # 0.1 10^3/ul (0.0-0.5); EOSINOPHILS % 0.7 % (0.0-7.0); HEMATOCRIT 34.5 % (37.0-47.0); HEMOGLOBIN 11.1 g/dl (12.0-16.0); LYMPHOCYTES # 1.5 10^3/ul (0.8-2.9); LYMPHOCYTES % 22.4 % (15.0-51.0); MEAN CORPUSCULAR HEMOGLOBIN 31.2 pg (29.0-33.0); MEAN CORPUSCULAR HGB CONC 32.2 g/dl (32.0-37.0); MEAN CORPUSCULAR VOLUME 96.9 fl (82.0-101.0); MEAN PLATELET VOLUME 11.5 fl (7.4-10.4); MONOCYTE # 0.7 10^3/ul (0.3-0.9); MONOCYTES % 10.1 % (0.0-11.0); NEUTROPHIL # 4.4 10^3/ul (1.6-7.5); NEUTROPHILS % 65.7 % (39.0-77.0); PLATELET COUNT 155 10^3/UL (140-415); RED BLOOD COUNT 3.56 10^6/ul (4.20-5.40); RED CELL DISTRIBUTION WIDTH 17.3 % (11.5-14.5)
[2018-05-30 06:23] LABS: WHITE BLOOD COUNT 6.8 10^3/ul (4.8-10.8)
[2018-05-30 06:59] LABS: ALANINE AMINOTRANSFERASE 41 IU/L (13-69); ALBUMIN 3.3 g/dl (3.3-4.9); ALBUMIN/GLOBULIN RATIO 1.13; ALKALINE PHOSPHATASE 87 IU/L (42-121); ANION GAP 13 (5-13); ASPARTATE AMINO TRANSFERASE 40 IU/L (15-46); BILIRUBIN,INDIRECT 1.5 mg/dl (0-1.1); BILIRUBIN,TOTAL 1.5 mg/dl (0.2-1.3); BLOOD UREA NITROGEN 33 mg/dl (7-20); CARBON DIOXIDE 22 mmol/L (21-31); CHLORIDE 99 mmol/L (97-110); CREATININE 1.39 mg/dl (0.44-1.00); Estimated GFR 41 mL/min (>60); GLUCOSE 105 mg/dl (70-220); POTASSIUM 3.8 mmol/L (3.5-5.1); SODIUM 134 mmol/L (135-144); TOTAL PROTEIN 6.2 g/dl (6.1-8.1)
[2018-05-30 07:07] LABS: PREALBUMIN 9.5 mg/dl (17.6-36.0)
[2018-05-30] MEDS: METOCLOPRAMIDE 10 MG INJ IV (07:37)
[2018-05-30] MEDS: THIAMINE 100 MG TAB PO (09:24)
[2018-05-30] MEDS: AMOXICILLIN 500 MG CAP PO ×2 (09:24→21:35)
[2018-05-30] MEDS: CLARITHROMYCIN 500 MG TAB PO ×2 (09:24→21:35)
[2018-05-30] MEDS: LANSOPRAZOLE 30 MG CAP PO ×2 (09:24→21:35)
[2018-05-30] MEDS: POTASSIUM CHLORIDE 20 MEQ POWDER FOR ORAL SOLN PO (09:24)
[2018-05-30] MEDS: D5W-0.45 NACL + KCL 10 MEQ 1,000 ML IV ×2 (10:00→15:47)
[2018-05-30] MEDS ORDERED: FUROSEMIDE 20 MG INJ IV (11:00)
[2018-05-30] MEDS: SPIRONOLACTONE 25 MG TAB PO (12:23)
[2018-05-30] MEDS ORDERED: LORAZEPAM 4 MG/ML VIAL IV (14:00)
[2018-05-30] MEDS: LORAZEPAM 4 MG/ML VIAL IV (14:05)
[2018-05-31] MEDS: THIAMINE 100 MG TAB PO (08:57)
[2018-05-31] MEDS: SPIRONOLACTONE 25 MG TAB PO (08:57)
[2018-05-31] MEDS: CLARITHROMYCIN 500 MG TAB PO ×2 (08:57→20:55)
[2018-05-31] MEDS: POTASSIUM CHLORIDE 20 MEQ POWDER FOR ORAL SOLN PO (08:57)
[2018-05-31] MEDS: LANSOPRAZOLE 30 MG CAP PO ×2 (08:57→20:55)
[2018-05-31] MEDS: metroNIDAZOLE 500 MG TAB PO ×2 (08:58→20:55)
[2018-05-31] MEDS: AMOXICILLIN 500 MG CAP PO ×2 (08:58→20:55)
[2018-05-31] MEDS: ONDANSETRON 4 MG INJ IV (11:18)
[2018-05-31] MEDS: FUROSEMIDE 20 MG INJ IV (16:21)
[2018-05-31] MEDS ORDERED: ONDANSETRON 4 MG INJ IV (17:00)
[2018-05-31] MEDS: ONDANSETRON (ODT) 4 MG TAB ODT (20:55)
[2018-05-31] MEDS: ENOXAPARIN 30 MG/0.3 ML SYG SC (21:02)
[2018-05-31] MEDS: ZOLPIDEM 5 MG TAB PO (23:27)
[2018-06-01] MEDS: D5W-0.45 NACL + KCL 10 MEQ 1,000 ML IV ×2 (02:00→07:25)
[2018-06-01 06:10] LABS: ADD MAN DIFF? NO
[2018-06-01 06:27] LABS: ABNORMAL IP MESSAGE 1; BASOPHILS % 0.4 % (0.0-2.0); EOSINOPHILS % 0.3 % (0.0-7.0); HEMOGLOBIN 11.5 g/dl (12.0-16.0); LYMPHOCYTES # 1.9 10^3/ul (0.8-2.9); LYMPHOCYTES % 16.8 % (15.0-51.0); MEAN CORPUSCULAR HEMOGLOBIN 30.7 pg (29.0-33.0); MEAN CORPUSCULAR HGB CONC 31.1 g/dl (32.0-37.0); MEAN CORPUSCULAR VOLUME 98.7 fl (82.0-101.0); MEAN PLATELET VOLUME 11.3 fl (7.4-10.4); MONOCYTE # 1.5 10^3/ul (0.3-0.9); MONOCYTES % 13.6 % (0.0-11.0); NEUTROPHIL # 7.7 10^3/ul (1.6-7.5); NUCLEATED RED BLOOD CELLS% 0.2 /100WBC (0.0-0.0); PLATELET COUNT 134 10^3/UL (140-415); RED BLOOD COUNT 3.75 10^6/ul (4.20-5.40); RED CELL DISTRIBUTION WIDTH 17.8 % (11.5-14.5)
[2018-06-01 06:27] LABS: WHITE BLOOD COUNT 11.3 10^3/ul (4.8-10.8)
[2018-06-01 06:33] LABS: INR 2.31
[2018-06-01 06:35] LABS: DIGOXIN 1.3 ng/ml (1.0-2.0)
[2018-06-01 06:47] LABS: POSITIVE DIFF @See below
[2018-06-01 06:50] LABS: MAGNESIUM 2.1 mg/dl (1.7-2.5)
[2018-06-01 06:53] LABS: ALANINE AMINOTRANSFERASE 187 IU/L (13-69); ALBUMIN 3.7 g/dl (3.3-4.9); ALBUMIN/GLOBULIN RATIO 1.15; ALKALINE PHOSPHATASE 93 IU/L (42-121); ANION GAP 18 (5-13); ASPARTATE AMINO TRANSFERASE 296 IU/L (15-46); BILIRUBIN,INDIRECT 2.3 mg/dl (0-1.1); BILIRUBIN,TOTAL 2.7 mg/dl (0.2-1.3); BLOOD UREA NITROGEN 38 mg/dl (7-20); CALCIUM 9.2 mg/dl (8.4-10.2); CARBON DIOXIDE 20 mmol/L (21-31); CHLORIDE 96 mmol/L (97-110); CREATININE 1.64 mg/dl (0.44-1.00); Estimated GFR 34 mL/min (>60); GLUCOSE 101 mg/dl (70-220); LIPASE 143 U/L (23-300); POTASSIUM 5.1 mmol/L (3.5-5.1); SODIUM 134 mmol/L (135-144); TOTAL PROTEIN 6.9 g/dl (6.1-8.1)
[2018-06-01] MEDS: LANSOPRAZOLE 30 MG CAP PO (08:29)
[2018-06-01] MEDS: AMOXICILLIN 500 MG CAP PO (08:29)
[2018-06-01] MEDS: CLARITHROMYCIN 500 MG TAB PO (08:29)
[2018-06-01] MEDS: metroNIDAZOLE 500 MG TAB PO (08:29)
[2018-06-01] MEDS: THIAMINE 100 MG TAB PO (08:29)
[2018-06-01] MEDS: ENOXAPARIN 30 MG/0.3 ML SYG SC (08:30)
[2018-06-01] MEDS: POTASSIUM CHLORIDE 20 MEQ POWDER FOR ORAL SOLN PO (08:31)
[2018-06-01] MEDS: DIGOXIN 0.125 MG TAB PO (12:14)
[2018-06-02] MEDS ORDERED: FERROUS SULFATE (EC) 325 MG TAB PO (21:00)
[2018-06-05] MEDS ORDERED: SPIRONOLACTONE 25 MG TAB PO (13:00)
[2018-06-05] MEDS ORDERED: FERROUS SULFATE (EC) 325 MG TAB PO (21:00)
== END 2018-06-01 18:12 | disposition home or self-care (01) | DRG 291 ==
LOC: FTE 07:35 → 6WM 11:43
PROC: 0DJ08ZZ Inspection of Upper Intestinal Tract, Via Natural or Artificial Opening Endoscopic (ICD-10-PCS; principal; 2018-05-29 12:05)
DX: I13.0 Hypertensive heart and chronic kidney disease with heart failure and stage 1 through stage 4 chronic kidney disease, or unspecified chronic kidney disease (principal); I50.23 Acute on chronic systolic (congestive) heart failure; K80.10 Calculus of gallbladder with chronic cholecystitis without obstruction; I47.2 Ventricular tachycardia; N17.9 Acute kidney failure, unspecified; D68.9 Coagulation defect, unspecified; R18.8 Other ascites; N18.9 Chronic kidney disease, unspecified; Z95.810 Presence of automatic (implantable) cardiac defibrillator; I42.9 Cardiomyopathy, unspecified; J44.9 Chronic obstructive pulmonary disease, unspecified; I27.20 Pulmonary hypertension, unspecified; D63.1 Anemia in chronic kidney disease; K76.0 Fatty (change of) liver, not elsewhere classified; K29.00 Acute gastritis without bleeding; F41.9 Anxiety disorder, unspecified; G47.8 Other sleep disorders; B96.81 Helicobacter pylori [H. pylori] as the cause of diseases classified elsewhere; D72.829 Elevated white blood cell count, unspecified
CPT/HCPCS: 71045; 74176; 76705; 78226; 80053; 80061; 80162; 81001; 82550; 82553; 82607; 82746; 83036; 83605; 83690; 83735; 83880; 84100; 84134; 84443; 84484; 84703; 85025; 85610; 85730; 87086; 87338; 87400; 88305; 88312; 90686; 93005; 94644; 96374; 99285-25